=== PATIENT | female | born 1985 | race Caucasian/White ===

== ENCOUNTER → 2018-02-06 11:46 | Outpatient (CLI) | payer OTHER, SELFPAY ==
[2018-02-06 12:30] LABS: Hematocrit 34.7 % (37-47); Hemoglobin 12.3 g/dl (12.0-15.0); Mean Corp Hgb Conc 35.4 g/gl (32-36); Mean Corpuscular Hgb 32.4 pg (27.0-32.0); Mean Corpuscular Volume 91.3 fL (81-99); Mean Platelet Vol. 10.6 fl (6.2-12.0); Platelet Count 202 K/mm3 (150-450); RBC Distribution Width CV 12.5 % (11.6-14.6); RBC Distribution Width SD 40.4 fl (35.1-43.9); White Blood Count 7.2 K/mm3 (4.4-11.0)
[2018-02-06 12:33] LABS: Glucose Challenge Gest 1H 50g 83 mg/dL (70-140)
[2018-02-06 12:37] LABS: Scan Indicated on CBC? Y/N NO
== END ==
PROVIDERS: Visit Provider Obstetrics & Gynecology
DX: Z34.83 Encounter for supervision of other normal pregnancy, third trimester (principal)
CPT/HCPCS: 36415; 82950; 85027

== ENCOUNTER → 2018-04-04 16:41 | Outpatient (CLI) | payer OTHER, SELFPAY ==
[2018-04-04 18:36] LABS: Group B Strep DNA By PCR Negative (Negative); Internal Control PASS; Probe Check PASS; Specimen Processing Control PASS
== END ==
PROVIDERS: Visit Provider Obstetrics & Gynecology
DX: Z36.85 Encounter for antenatal screening for Streptococcus B (principal)
CPT/HCPCS: 87081; 87653

== ENCOUNTER 2018-05-03 16:15 | Inpatient (IN) | payer OTHER, SELFPAY ==
[2018-05-03 17:01] VITALS: BMI 21.3
[2018-05-03 17:19] LABS: Hematocrit 34.4 % (37-47); Mean Corp Hgb Conc 34.9 g/gl (32-36); Mean Corpuscular Hgb 30.2 pg (27.0-32.0); Mean Corpuscular Volume 86.6 fL (81-99); Mean Platelet Vol. 11.1 fl (6.2-12.0); Platelet Count 195 K/mm3 (150-450); RBC Distribution Width CV 12.1 % (11.6-14.6); RBC Distribution Width SD 37.7 fl (35.1-43.9); Red Blood Count 3.97 M/mm3 (4.2-5.4); Scan Indicated on CBC? Y/N NO; White Blood Count 9.5 K/mm3 (4.4-11.0)
[2018-05-03] MEDS: Oxytocin 30 units/NS 500 ml 30 UNITS/500 ML IV.SOLN 334 UNITS IV (17:55)
--- NOTE | 2018-05-03 18:01 | PCM.OB.VAG ---
Vaginal Delivery Maternal Presentation: Active Labor 40 2/7 wk active labor. Amniotic Membrane Rupture Type: Spontaneous Amniotic Fluid Description: Clear Final DK: 05/01/18 Gestational age: 40 Weeks and 2 Days Date of Procedure: 05/03/18 Pre-Operative Diagnosis: 40 2/7 wk labor. Post-Operative Diagnosis: Precipitous labor Surgery/ Procedure Performed: Spontaneous Vaginal Delivery Type of Anesthesia: None Description of Procedure: Rapid progress from 5 cm to complete and SROM. End stage FHR deceleration x 5-6 min 60-90s due to rapid descent of alfaro male over intact perineum. Shoulders delivered easily. Infant to maternal abdomen and cord clamped x two and cut. Routine cord gas and cord blood for typing sent. Placenta delivered by spont expuslion, expression 3V cord normal appearing and intact with trailing membranes. PP exam: 1st deg vulvar avulsion laceration noted. No other lacerations. Repaired under 1% local lidocaine. with 3-0 Vicryl EBL 200 cc pt and tolerated well. to recovery stable condition RayTec counts correct x two. Presentation: Vertex Placental Delivery Description: Spontaneous, Expressed Placenta Disposition: [facility] Cord Vessel Description: 3 Vessels Cord Entanglement: None Estimated Blood Loss: 200 Infant A gender: Male (1 minute): 8 (5 minute): 9 Episiotomy Description: None Laceration: 1st degree - avulsion laceration at R mid labia majora. repaired, reapproximated. Medications given after delivery: IV Pitocin Complications: None
--- NOTE | 2018-05-03 18:07 | OP.PCM_ITS ---
Vaginal Delivery Maternal Presentation: Active Labor 40 2/7 wk active labor. Amniotic Membrane Rupture Type: Spontaneous Amniotic Fluid Description: Clear Final DK: 05/01/18 Gestational age: 40 Weeks and 2 Days Date of Procedure: 05/03/18 Pre-Operative Diagnosis: 40 2/7 wk labor. Post-Operative Diagnosis: Precipitous labor Surgery/ Procedure Performed: Spontaneous Vaginal Delivery Type of Anesthesia: None Description of Procedure: Rapid progress from 5 cm to complete and SROM. End stage FHR deceleration x 5- 6 min 60-90s due to rapid descent of alfaro male over intact perineum. Shoulders delivered easily. to maternal abdomen and cord clamped x two and cut. Routine cord gas and cord blood for typing sent. Placenta delivered by spont expuslion, expression 3V cord normal appearing and intact with trailing membranes. PP exam: 1st deg vulvar avulsion laceration noted. No other lacerations. Repaired under 1% local lidocaine. with 3-0 Vicryl EBL 200 cc pt and tolerated well. to recovery stable condition RayTec counts correct x two. Presentation: Vertex Placental Delivery Description: Spontaneous, Expressed Placenta Disposition: [facility] Cord Vessel Description: 3 Vessels Cord Entanglement: None Estimated Blood Loss: 200 A gender: Male (1 minute): 8 (5 minute): 9 Episiotomy Description: None Laceration: 1st degree - avulsion laceration at R mid labia majora. repaired, reapproximated. Medications given after delivery: IV Pitocin Complications: None
--- NOTE | 2018-05-03 18:09 | PCM.DCVAG ---
Discharge Diet: No Restrictions Discharge Activity: May Shower, May Take a Tub Bath May resume sexual activity in: 4-6 weeks Additional Activity Instructions:: Nothing in the vagina for 4-6 weeks. You may return to work/school in 6 weeks. Additional Instructions: If you experience any of the following, contact your healthcare provider. Bleeding that soaks a pad every hour for 2 hours Fever 100.4 or higher Unrelieved abdominal pain Problems urinating (including inability to urinate or burning while urinating). Visual changes Severe headache Flu-like symptoms Pain or redness in one of both of your breasts Pain, warmth, tenderness or swelling in your legs, especially the calf area Frequent nausea and vomiting Symptoms of depression or anxiety If you experience any of the following, call 911 or go to the nearest Emergency Room. Chest pain Problems breathing Seizure activity Partial or complete paralysis of a body part, slurred speech, weakness or drooping of the face, or a sudden inability to walk or hold your balance Allergies/Adverse Reactions: Allergies amoxicillin [Amoxicillin] Allergy (Intermediate, Verified 05/03/18 17:17) Rash Medications to take at Discharge Vits [Prenatabs FA ] 1 tab PO DAILY 12/02/15 Please Follow Up With: Chase López MD - [phone] When: Call to make an appointment with your doctor in 6 weeks. Primary Care Physician: Care Physician,No Primary [Primary Care Provider] - Proposed Discharge Date: 05/05/18
--- NOTE | 2018-05-03 18:10 | DCINST_ITS ---
Discharge Diet: No Restrictions Discharge Activity: May Shower, May Take a Tub Bath May resume sexual activity in: 4-6 weeks Additional Activity Instructions:: Nothing in the vagina for 4-6 weeks. You may return to work/school in 6 weeks. Additional Instructions: If you experience any of the following, contact your healthcare provider. * Bleeding that soaks a pad every hour for 2 hours * Fever 100.4 or higher * Unrelieved abdominal pain * Problems urinating (including inability to urinate or burning while urinating) . * Visual changes * Severe headache * Flu-like symptoms * Pain or redness in one of both of your breasts * Pain, warmth, tenderness or swelling in your legs, especially the calf area * Frequent nausea and vomiting * Symptoms of depression or anxiety If you experience any of the following, call 911 or go to the nearest Emergency Room. * Chest pain * Problems breathing * Seizure activity * Partial or complete paralysis of a body part, slurred speech, weakness or drooping of the face, or a sudden inability to walk or hold your balance Allergies/Adverse Reactions: Allergies amoxicillin [Amoxicillin] Allergy (Intermediate, Verified 05/03/18 17:17) Rash Medications to take at Discharge Vits [Prenatabs FA ] 1 tab PO DAILY 12/02/15 Please Follow Up With: Chase López MD - [phone] When: Call to make an appointment with your doctor in 6 weeks. Primary Care Physician: Care Physician,No Primary [Primary Care Provider] - Proposed Discharge Date: 05/05/18
[2018-05-03] MEDS: Oxytocin 30 units/NS 500 ml 30 UNITS/500 ML IV.SOLN 167 UNITS IV (18:25)
[2018-05-03] MEDS: 0.9% Saline Lock 10 ML Syringe IV (19:35)
[2018-05-03] MEDS: Methylergonovine 0.2 MG/ML Ampul IM (19:39)
[2018-05-03 20:01] VITALS: BP 115/69; PULSE 62; RESP 18; TEMP 37.3
[2018-05-03] MEDS: Naproxen 250 MG Tablet PO (21:34)
--- NOTE | 2018-05-03 22:30 | NURSING ---
completed per phone conversation with Jimmy @ 2226 05/03/18.
[2018-05-03 23:30] VITALS: BP 126/65; PULSE 64; RESP 17; TEMP 36.8
[2018-05-04 03:45] VITALS: BP 113/60; PULSE 57; RESP 16; TEMP 36.8
--- NOTE | 2018-05-04 07:52 | PCM.PN.OB ---
Subjective: PPD#1 , precipitous labor/delivery Doing well. Nursing. States no pain and feeling very well. No concerns voiced. Plans circumcision today and asking questions re this. Nursing in room and assisting with latching of baby , nursing. - Physical Exam General: Alert, Oriented x3, Cooperative, No apparent distress HEENT: Atraumatic Neck: Supple Neurological: Cranial nerves II-XII grossly intact Psych/Mental Status: Normal Affect Vital Signs Temp Pulse Resp BP 98.3 F 57 L 16 113/60 05/04/18 03:45 05/04/18 03:45 05/04/18 03:45 05/04/18 03:45 Oxygen Delivery Method Room Air Weight: 63.56 kg Body Mass Index (BMI) 21.3 Intake and Output for Last 24 Hours 05/02/18 05/03/18 05/04/18 23:59 23:59 23:59 Output Total 800 / 800 Balance -800 / -800 Laboratory Tests Past 24 Hrs 05/03/18 05/03/18 17:00 17:00 WBC 9.5 RBC 3.97 L Hgb 12.0 Hct 34.4 L MCV 86.6 MCH 30.2 MCHC 34.9 RDW 12.1 RDW Differential 37.7 Plt Count 195 MPV 11.1 Blood Type O POSITIVE Antibody Screen NEGATIVE Medical Necessity - Tobacco Use Smoking Status: Never smoker Assessment/Plan All Active Problems (Last Updated 12/14/17 @ 09:56 by Yamilex Lechuga) Cyclic neutropenia (Resolved) PPD#1 , precipitous labor/ delivery stable pp. Offered dischg home today or tomorrow. Will consider and inform nursing staff
[2018-05-04 09:30] VITALS: BP 117/69; PULSE 71; RESP 16; TEMP 36.9
[2018-05-04] MEDS: Naproxen 250 MG Tablet PO ×2 (09:45→18:13)
[2018-05-04] MEDS: Prenatal Vits Tablet 1 TABLET PO (09:46)
[2018-05-04 15:50] VITALS: BP 124/71; PULSE 61; RESP 16; TEMP 36.9
[2018-05-04] MEDS: Senna/Docusate Sodium 1 Tablet PO (18:13)
[2018-05-04 20:03] VITALS: BP 126/72; PULSE 62; RESP 16; TEMP 36.8
[2018-05-04 21:20] VITALS: BP 126/72; PULSE 88; RESP 16; TEMP 36.8
== END 2018-05-04 21:50 | disposition home or self-care (01) | DRG 775 ==
PROVIDERS: Admitting Provider Obstetrics & Gynecology; Visit Provider Obstetrics & Gynecology
DX: O76 Abnormality in fetal heart rate and rhythm complicating labor and delivery (principal); O42.02 Full-term premature rupture of membranes, onset of labor within 24 hours of rupture; O62.3 Precipitate labor; O99.89 Other specified diseases and conditions complicating pregnancy, childbirth and the puerperium; D70.4 Cyclic neutropenia; O70.0 First degree perineal laceration during delivery; Z3A.40 40 weeks gestation of pregnancy; Z37.0 Single live birth; Z87.59 Personal history of other complications of pregnancy, childbirth and the puerperium
CPT/HCPCS: 59025; 59050; 85027; 86850; 86900; 99218; A4216; G0378

== ENCOUNTER → 2019-07-16 | Outpatient (CLI) | payer OTHER, SELFPAY ==
[2019-07-22 15:08] LABS: HPV Reflexed? NOT INDICATED
== END | disposition home or self-care (01) ==
LOC: LABSPEC 15:42
PROVIDERS: Visit Provider Obstetrics & Gynecology
DX: Z12.4 Encounter for screening for malignant neoplasm of cervix (principal)
CPT/HCPCS: 87624; 88175; G0145

== ENCOUNTER → 2019-10-07 14:21 | Outpatient (CLI) | payer OTHER, SELFPAY ==
[2019-10-07 13:29] VITALS: BMI 21.3
[2019-10-07 17:37] LABS: Absolute Lymphocyte Count 1.48 X10^3/uL (0.83-4.51); Absolute Neutrophil Count 3.6 X10^3/uL (2.0-7.7); Basophil# 0.02 X10^3/uL; Basophil% 0.4 % (0-1); Eosinophil# 0.11 X10^3/uL; Hematocrit 42.3 % (37-47); Hemoglobin 13.7 g/dL (12.0-15.0); Lymphocyte # 1.48 X10^3/ul (4.0); Lymphocyte % 26.3 % (19-41); Mean Corp Hgb Conc 32.4 g/dL (32-36); Mean Corpuscular Hgb 28.6 pg (27.0-32.0); Mean Corpuscular Volume 88.3 fL (81-99); Mean Platelet Vol. 10.6 fl (6.2-12.0); Monocyte# 0.37 X10^3/uL; Monocyte% 6.6 % (0-10); NRBC Flagged by Analyzer 0 % (0-5); Neutrophil # 3.63 X10^3/uL (2.7-7.7); Neutrophil % 64.5 % (47-70); Platelet Count 219 K/mm3 (150-450); RBC Distribution Width CV 12.1 % (11.6-14.6); RBC Distribution Width SD 39.1 fl (35.1-43.9); Red Blood Count 4.79 M/mm3 (4.2-5.4); White Blood Count 5.6 K/mm3 (4.4-11.0)
[2019-10-07 18:07] LABS: ALB/GLOB Ratio 1.1 RATIO (0.9-2.4); AST(SGOT) 22 U/L (15-37); Alanine Aminotransfer ALT/SGPT 23 U/L (13-56); Alkaline Phosphatase 62 U/L (45-117); Anion Gap 6 (5-15); BUN 11 mg/dL (7-18); BUN/Creat Ratio 12.2 RATIO (10-20); Calcium,Total 8.3 mg/dL (8.5-10.1); Chloride 104 mmol/L (98-107); EST Glomerular Filtration Rate 76 mL/min (>60); Est Glom Filt Rate - Afr Amer 92 mL/min (>60); Globulin 3.8 g/dL (2.2-4.2); Glucose 82 mg/dL (74-106); Potassium 3.7 mmol/L (3.5-5.1); Protein, Total 7.8 g/dL (6.4-8.2); Sodium Level 139 mmol/L (136-145); T4 Free Direct 1.11 ng/dL (0.76-1.46); Thyroid Stim Hormone (TSH) 1.76 uIU/mL (0.358-3.74)
== END ==
PROVIDERS: Family Provider Internal Medicine; PCP Internal Medicine; Referring Provider Internal Medicine; Visit Provider Internal Medicine
DX: D70.9 Neutropenia, unspecified (principal); Z13.29 Encounter for screening for other suspected endocrine disorder
CPT/HCPCS: 36415; 80053; 84439; 84443; 85025

== ENCOUNTER → 2020-08-25 10:16 | Outpatient (CLI) | payer OTHER, SELFPAY ==
[2020-08-25 09:51] VITALS: BMI 21.3
[2020-08-25 10:18] LABS: Mucous, Urine 0 SEEN /hpf (<or=2+); Red Blood Cells-Urine 0 SEEN /hpf (0-5)
--- NOTE | 2020-08-25 10:38 | EKG12_ITS ---
Test Reason : PREOP Blood Pressure : / mmHG Vent. Rate : 065 BPM Atrial Rate : 065 BPM P-R Int : 126 ms QRS Dur : 084 ms QT Int : 390 ms P-R-T Axes : 079 079 046 degrees QTc Int : 405 ms Normal sinus rhythm Normal ECG Confirmed by KESHAV DELGADO, ARNOL ([id number]), multimedia editor BETTINA SHARIF ([id number]) on 08/26/2020 10:07:43 AM Referred By: Av Kim Confirmed By:ARNOL PARR MD
[2020-08-25 12:11] LABS: Color, Urine Yellow (Yellow); Glucose, Dipstick Normal (Normal); Ketone-Dipstick Negative (Negative); Leukocyte Esterase-Dipstick 100 /ul (Negative); Nitrite-Dipstick Negative (Negative); Occult Blood-Urine 10 /ul (Negative); Protein-Dipstick Negative (Negative); Urine Bilirubin Dipstick Negative (Negative); Urine Clarity Clear (Clear); Urine Urobilinogen Normal (Normal)
[2020-08-25 12:12] LABS: Internal QC Validated? YES +Cl - CLEAR BKGD; Pregnancy, Urine Negative Negative
[2020-08-25 12:13] LABS: Absolute Lymphocyte Count 1.18 X10^3/uL (0.83-4.51); Absolute Neutrophil Count 3.5 X10^3/uL (2.0-7.7); Basophil# 0.01 X10^3/uL; Basophil% 0.2 % (0-1); Eosinophil# 0.05 X10^3/uL; Hematocrit 42.9 % (37-47); Hemoglobin 14.4 g/dL (12.0-15.0); Lymphocyte # 1.18 X10^3/ul (4.0); Lymphocyte % 23.3 % (19-41); Mean Corp Hgb Conc 33.6 g/dL (32-36); Mean Corpuscular Hgb 29.9 pg (27.0-32.0); Mean Platelet Vol. 10.7 fl (6.2-12.0); Monocyte# 0.37 X10^3/uL; Monocyte% 7.3 % (0-10); NRBC Flagged by Analyzer 0 % (0-5); Neutrophil # 3.45 X10^3/uL (2.7-7.7); Platelet Count 252 K/mm3 (150-450); RBC Distribution Width CV 11.8 % (11.6-14.6); RBC Distribution Width SD 38.5 fl (35.1-43.9); Red Blood Count 4.82 M/mm3 (4.2-5.4); White Blood Count 5.1 K/mm3 (4.4-11.0)
[2020-08-25 12:15] LABS: Bacteria RARE /hpf (None Seen); Squamous Epithelial Cells - UA 5-10 SEEN /hpf (5-10); White Blood Cells 0-5 SEEN /hpf (0-5)
[2020-08-25 12:33] LABS: ALB/GLOB Ratio 0.9 RATIO (0.9-2.4); AST(SGOT) 23 U/L (15-37); Alanine Aminotransfer ALT/SGPT 23 U/L (13-56); Albumin, Serum 3.8 g/dL (3.2-5.0); Alkaline Phosphatase 64 U/L (45-117); Anion Gap 4 (5-15); BUN 10 mg/dL (7-18); BUN/Creat Ratio 12.8 RATIO (10-20); Calcium,Total 8.8 mg/dL (8.5-10.1); Chloride 106 mmol/L (98-107); Creatinine, Serum 0.78 mg/dL (0.55-1.02); EST Glomerular Filtration Rate 89 mL/min (>60); Est Glom Filt Rate - Afr Amer 108 mL/min (>60); Globulin 4.2 g/dL (2.2-4.2); Glucose 73 mg/dL (74-106); Potassium 3.9 mmol/L (3.5-5.1); Sodium Level 138 mmol/L (136-145); Thyroid Stim Hormone (TSH) 1.67 uIU/mL (0.358-3.74)
== END ==
PROVIDERS: PCP Internal Medicine; Referring Provider Nurse Practitioner Family; Visit Provider Nurse Practitioner Family
DX: Z01.818 Encounter for other preprocedural examination (principal)
CPT/HCPCS: 36415; 80053; 81001; 81025; 84443; 85025; 93005

== ENCOUNTER 2020-09-16 13:35 | Emergency (ER) | payer OTHER, SELFPAY ==
[2020-08-25 09:51] VITALS: BMI 21.3
[2020-09-16 13:36] VITALS: BP 130/75; PULSE 107; RESP 16; TEMP 36.6; O2SAT 100; BMI 18.1
--- NOTE | 2020-09-16 13:43 | EKG12_ITS ---
Test Reason : SOB/CHEST TIGHTNESS Blood Pressure : / mmHG Vent. Rate : 081 BPM Atrial Rate : 081 BPM P-R Int : 120 ms QRS Dur : 084 ms QT Int : 368 ms P-R-T Axes : 072 013 059 degrees QTc Int : 427 ms Normal sinus rhythm Low voltage QRS Borderline ECG Confirmed by CLINT DELGADO, CHASITY ([id number]), slab off mill tender SHASHI SANTAMARIA ([id number]) on 09/23/2020 12:50:41 PM Referred By: ALMA Confirmed By:YENNY JARAMILLO MD
--- NOTE | 2020-09-16 13:53 | CT_ITS ---
STUDY: CTA CHEST REASON FOR EXAM: Female, 35 years old. SOB/BREAST AUGMENTATION WITH FAT TRANSFER 08/28/20. SOB RADIATION DOSAGE (If Supplied By Facility): CTDIvol = ( 4.20 ) mGy, DLP = ( 138.70 ) mGycm TECHNIQUE: The examination was performed with the intravenous administration of IV 75mL Isovue-370. Post-processing of the angiographic images was performed, with multiplanar reformation and 3D reconstruction. Individualized dose optimization techniques were used for this CT. COMPARISON: Comparison is made with prior examination dated 11/06/2011. FINDINGS: There is evidence of bilateral breast prostheses. Normal enhancement of the main pulmonary artery and right and left pulmonary arteries. Normal enhancement of the bilateral peripheral pulmonary arteries. There is no demonstrated pulmonary embolism. Normal thoracic aorta and visualized great vessels. There is no demonstrated aortic dissection. Normal heart and pericardium. Normal mediastinum. Normal hilar regions. Normal visualized trachea and bronchi. The lungs are well expanded. Minimal linear atelectasis at the lung bases. Normal pleura. Normal chest wall structures. Normal osseous structures. Normal visualized upper abdomen. CT/CTA Chest W/WO Contrast IMPRESSION: Status post bilateral breast prostheses. Minimal linear atelectasis at the lung bases Electronically Signed: Papito Tesfaye, at 15:07 EDT , Service support ,
--- NOTE | 2020-09-16 13:54 | ED.VIS.GEN ---
History of Present Illness Chief Complaint: Shortness of Breath Informant: Patient Onset: Days - 9 Narrative: Patient sent in here for PE rule out. Status post breast augmentation with fat transfer 9 days ago in [place] by Dr. William. 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 Noted increasing dyspnea with exertion. She states initially post surgery she felt slight dyspnea with having the take more deep breaths. No chest pains. No lightheaded symptoms. No past medical history. For the office at work she is 99% room air slightly tachycardic heart rate right at 100. She had negative Covid testing prior to her surgery. No fevers. No cough. Prior similar symptoms: No Past Medical History - Allergies and Home Meds Allergies/Adverse Reactions: Allergies amoxicillin [Amoxicillin] Allergy (Intermediate, Verified 09/16/20 13:36) Rash Primary Care Physician: Mandi Snider MD [Primary Care Provider] - Past Medical History: None Smoking Status: Never smoker Review of Systems General: Denies: Chills, Fever, Sweats Eyes: Denies: Visual changes - bilaterally, Diplopia ENT: Denies: Rhinorrhea, Sore throat Cardiovascular: Denies: Chest pain, Palpitations Respiratory: Reports: Dyspnea, Dyspnea on exertion. Denies: Cough Gastrointestinal: Denies: Abdominal pain, Nausea, Vomiting, Diarrhea, Melena, Hematochezia Genitourinary: Denies: Dysuria, Hematuria, Frequency Musculoskeletal: Denies: Back pain, Extremity Pain Skin: Denies: Rash, Wounds Neurological: Denies: Headache, Weakness, Numbness Physical Exam Vital Signs/Narrative: Vital Signs Temp Pulse Resp BP Pulse Ox 09/16/20 13:36 97.8 F 107 H 16 130/75 H 100 Inital Vital Signs reviewed: Yes General: Well nourished, Well developed, No Acute Distress Head: Normocephalic, Atraumatic Eyes: Perrl, EOMI ENT: Moist mucous membranes, No rhinorrhea Neck: Supple, Nontender Cardiovascular: Regular rate, Regular rhythm, No murmurs, Tachycardia Respiratory: No distress, CTA bilaterally, Chest nontender Abdomen: Soft, Nontender, Nondistended, Normal bowel sounds Back: Nontender, Normal Inspection Extremities: Nontender, No edema Skin: Normal color, No rash Neurological: Alert, Oriented x3, Cranial nerves II-XII grossly intact, Normal Strength, Normal Sensation Psychological: Normal affect, Normal Mood Diagnostic/Tx/Re-eval Clinical Impression(s) from Imaging Studies Chest CTA 09/16/20 13:53 IMPRESSION: Status post bilateral breast prostheses. Minimal linear atelectasis at the lung bases Electronically Signed: Papito Tesfaye, at 15:07 EDT , Service support , Abnormal Lab Results 09/16/20 09/16/20 09/16/20 14:00 14:00 14:00 WBC RBC Hgb Hct MCV MCH MCHC RDW Std Deviation RDW Coeff of Robert Plt Count MPV Immature Gran % (Auto) Neut % (Auto) Lymph % (Auto) Rolette % (Auto) Eos % (Auto) Baso % (Auto) Absolute Neuts (auto) Absolute Lymphs (auto) Nucleated RBC % PT 12.5 INR 1.0 APTT 30.0 Sodium 139 Potassium 3.3 L Chloride 108 H Carbon Dioxide 27.0 Anion Gap 4 L BUN 12 Creatinine 0.74 Estim Creat Clear Calc 90.79 Est GFR (MDRD) Af Amer 115 Est GFR (MDRD) Non-Af 95 BUN/Creatinine Ratio 16.3 Glucose 103 Calcium 8.8 Total Bilirubin 0.40 AST 25 ALT 23 Alkaline Phosphatase 60 Total Protein 7.7 Albumin 3.8 Globulin 3.9 Albumin/Globulin Ratio 1.0 Serum , Qual NEGATIVE 09/16/20 14:00 WBC 5.7 RBC 4.52 Hgb 13.8 Hct 40.4 MCV 89.4 MCH 30.5 MCHC 34.2 RDW Std Deviation 37.6 RDW Coeff of Robert 11.7 Plt Count 253 MPV 10.4 Immature Gran % (Auto) 0.200 Neut % (Auto) 65.7 Lymph % (Auto) 23.0 Rolette % (Auto) 10.2 H Eos % (Auto) 0.5 Baso % (Auto) 0.4 Absolute Neuts (auto) 3.8 Absolute Lymphs (auto) 1.31 Nucleated RBC % 0 PT INR APTT Sodium Potassium Chloride Carbon Dioxide Anion Gap BUN Creatinine Estim Creat Clear Calc Est GFR (MDRD) Af Amer Est GFR (MDRD) Non-Af BUN/Creatinine Ratio Glucose Calcium Total Bilirubin AST ALT Alkaline Phosphatase Total Protein Albumin Globulin Albumin/Globulin Ratio Serum , Qual - EKG Initial EKG Interpretation: Sinus Rhythm - EKG sinus rate of 81, no ST or T wave changes. - Medical Decision Making Patient nontoxic, no respiratory distress. Moderate risk Wells criteria for PE with her recent surgery and symptoms. Labs stable EKG normal. CTA of the chest results returned negative. Initial tachycardia in triage normalized. Pulse ox is stable. She will monitor her symptoms. She has a follow-up with her surgeon in a week. Signs and symptoms discussed to return. All questions were answered. ED Disposition - Plan for ED Patient: Disposition: Home or Assisted Living Diagnosis: Dyspnea, post op breast augmentaion Instructions: ED Dyspnea Referrals: Mandi Snider MD [Primary Care Provider] - 1 Week Additional Instructions: CTA chest negative.
[2020-09-16 14:06] VITALS: O2SAT 100
[2020-09-16 14:24] LABS: Internal QC Validated? YES +Cl - CLEAR BKGD; Pregnancy, Serum, hCG Quali. NEGATIVE Negative
[2020-09-16 14:27] LABS: Prothrombin Time (Protime)PT. 12.5 SECONDS (11.7-14.9)
[2020-09-16 14:28] LABS: AST(SGOT) 25 U/L (15-37); Alanine Aminotransfer ALT/SGPT 23 U/L (13-56); Albumin, Serum 3.8 g/dL (3.2-5.0); Alkaline Phosphatase 60 U/L (45-117); Anion Gap 4 (5-15); BUN 12 mg/dL (7-18); BUN/Creat Ratio 16.3 RATIO (10-20); Calcium,Total 8.8 mg/dL (8.5-10.1); Chloride 108 mmol/L (98-107); Creatinine, Serum 0.74 mg/dL (0.55-1.02); EST Glomerular Filtration Rate 95 mL/min (>60); Est Glom Filt Rate - Afr Amer 115 mL/min (>60); Estimated Creatinine Clearance 90.79 ml/min; Globulin 3.9 g/dL (2.2-4.2); Glucose 103 mg/dL (74-106); Potassium 3.3 mmol/L (3.5-5.1); Protein, Total 7.7 g/dL (6.4-8.2); Sodium Level 139 mmol/L (136-145)
[2020-09-16 14:46] LABS: Absolute Lymphocyte Count 1.31 X10^3/uL (0.83-4.51); Absolute Neutrophil Count 3.8 X10^3/uL (2.0-7.7); Basophil# 0.02 X10^3/uL; Basophil% 0.4 % (0-1); Eosinophil# 0.03 X10^3/uL; Eosinophils% 0.5 % (0-5); Hematocrit 40.4 % (37-47); Hemoglobin 13.8 g/dL (12.0-15.0); Lymphocyte # 1.31 X10^3/ul (4.0); Mean Corp Hgb Conc 34.2 g/dL (32-36); Mean Corpuscular Hgb 30.5 pg (27.0-32.0); Mean Corpuscular Volume 89.4 fL (81-99); Mean Platelet Vol. 10.4 fl (6.2-12.0); Monocyte# 0.58 X10^3/uL; Monocyte% 10.2 % (0-10); NRBC Flagged by Analyzer 0 % (0-5); Neutrophil # 3.75 X10^3/uL (2.7-7.7); Neutrophil % 65.7 % (47-70); Platelet Count 253 K/mm3 (150-450); RBC Distribution Width CV 11.7 % (11.6-14.6); RBC Distribution Width SD 37.6 fl (35.1-43.9); Red Blood Count 4.52 M/mm3 (4.2-5.4); White Blood Count 5.7 K/mm3 (4.4-11.0)
[2020-09-16 16:09] VITALS: BP 117/70; PULSE 84; RESP 18; O2SAT 99
== END 2020-09-16 16:16 | disposition home or self-care (01) ==
PROVIDERS: Emergency Provider Emergency Medicine; PCP Internal Medicine
DX: R06.00 Dyspnea, unspecified (principal); Z98.82 Breast implant status
CPT/HCPCS: 71275; 80048; 80053; 84703; 85025; 85610; 85730; 93005; 99283; Q9967; A4216

== ENCOUNTER 2022-02-09 13:35 | Outpatient (CLI) | payer OTHER, SELFPAY ==
[2022-02-15 21:22] LABS: HPV Reflexed? NOT INDICATED
== END 2022-02-09 23:59 | disposition home or self-care (01) ==
LOC: WOBLAB 13:36
PROVIDERS: PCP Internal Medicine; Referring Provider Obstetrics & Gynecology; Visit Provider Obstetrics & Gynecology
DX: Z12.4 Encounter for screening for malignant neoplasm of cervix (principal)
CPT/HCPCS: 88175; G0145

== ENCOUNTER 2022-06-14 12:12 | Outpatient (CLI) | payer OTHER, SELFPAY ==
--- NOTE | 2022-06-14 12:15 | BI_ITS ---
MAMMOGRAPHY - BILATERAL DIAGNOSTIC REASON FOR EXAM: Female, 37 years old. Right pea-sized lump just deep to the skin surface. PERTINENT HISTORY: Non-contributory. TECHNIQUE: Digital bilateral breast aarti (3D mammographic acquisition) in the CC and MLO projections. 2-D mediolateral oblique (MLO) and craniocaudad (CC) views of both breasts were obtained. CAD: Full Field Digital Mammography with Computer Added Detection was performed. COMPARISON: None. Baseline examination. FINDINGS: Breast Composition: The breasts are extremely dense, which lowers the sensitivity of mammography. There are no dominant masses or suspicious calcifications. Bilateral breast implants. No other significant abnormalities are identified. BI/DIAG MAMM W/CAD, BILAT IMPRESSION: Negative diagnostic mammogram. With the patient''s history of a palpable lump in the right breast, correlation with ultrasound is recommended. ASSESSMENT CATEGORY: BIRADS Category 0: Incomplete. Need additional imaging evaluation. A letter regarding these results will be sent to the patient by the facility within 30 days. Approximately 10% of breast cancers are not detected by mammography. A normal mammogram should not delay biopsy of a clinically suspicious abnormality. Electronically Signed: Papito Tesfaye MD at 13:54 EDT ,
--- NOTE | 2022-06-14 12:15 | US_ITS ---
STUDY: ULTRASOUND BREAST - RIGHT REASON FOR EXAM: Female, 37 years old. Palpable lump in the right breast. TECHNIQUE: Axial and longitudinal images of the RIGHT breast were performed with a high resolution ultrasound transducer. # OF IMAGES: 11 COMPARISON: Comparison is made with prior mammogram done earlier in the day. FINDINGS: RIGHT Breast: The palpable abnormality corresponds to a 7 mm x 8 mm x 5 mm cyst at the 1 o''clock position of the breast 8 cm US/Breast Limited Unilateral IMPRESSION: The palpable and mouth view) 7 mm x 8 mm x 5 mm cyst in the superficial aspect of the upper inner quadrant of the right breast. ASSESSMENT CATEGORY: BIRADS Category 2: Benign. A letter regarding these results will be sent to the patient by the facility within 30 days. Electronically Signed: Papito Tesfaye MD at 14:35 EDT ,
== END 2022-06-14 23:59 | disposition home or self-care (01) ==
PROVIDERS: PCP Internal Medicine; Visit Provider Nurse Practitioner Women's Health
DX: N63.10 Unspecified lump in the right breast, unspecified quadrant (principal)
CPT/HCPCS: 76642; 77062; 77066; G0279

== ENCOUNTER → 2024-01-01 | Outpatient (CLI) | payer OTHER, SELFPAY ==
[2024-01-01 16:27] LABS: Thyroid Stim Hormone (TSH) 1.97 uIU/mL (0.358-3.74)
[2024-01-03 11:09] LABS: Thyroid Peroxidase AB 12 IU/mL (0-34)
[2024-01-05 09:08] LABS: HPV APTIMA, High Risk Negative (Negative)
== END | disposition home or self-care (01) ==
PROVIDERS: PCP Nurse Practitioner Family; Referring Provider Nurse Practitioner Women's Health; Visit Provider Nurse Practitioner Women's Health
DX: Z12.4 Encounter for screening for malignant neoplasm of cervix (principal); D70.9 Neutropenia, unspecified; Z13.29 Encounter for screening for other suspected endocrine disorder
CPT/HCPCS: 36415; 84439; 84443; 86376; 87624; 88175; G0145

== ENCOUNTER 2024-01-24 07:24 | Outpatient (CLI) | payer OTHER, SELFPAY ==
[2024-01-24 10:06] LABS: Absolute Lymphocyte Count 0.97 X10^3/uL (0.83-4.51); Absolute Neutrophil Count 3.2 X10^3/uL (2.0-7.7); Basophil# 0.01 X10^3/uL; Basophil% 0.2 % (0-1); Eosinophil# 0.08 X10^3/uL; Eosinophils% 1.7 % (0-5); Hematocrit 39.8 % (37-47); Hemoglobin 13.5 g/dL (12.0-15.0); Lymphocyte # 0.97 X10^3/ul (0.83-4.51); Mean Corp Hgb Conc 33.9 g/dL (32-36); Mean Corpuscular Hgb 30.8 pg (27.0-32.0); Mean Corpuscular Volume 90.7 fL (81-99); Mean Platelet Vol. 10.2 fl (6.2-12.0); Monocyte# 0.36 X10^3/uL; Monocyte% 7.8 % (0-10); NRBC Flagged by Analyzer 0 % (0-5); Neutrophil # 3.19 X10^3/uL (2.7-7.7); Neutrophil % 69.1 % (47-70); Platelet Count 227 K/mm3 (150-450); RBC Distribution Width SD 39.6 fl (35.1-43.9); Red Blood Count 4.39 M/mm3 (4.2-5.4); White Blood Count 4.6 K/mm3 (4.4-11.0)
[2024-01-24 11:06] LABS: ALB/GLOB Ratio 0.9 RATIO (0.9-2.4); AST(SGOT) 23 U/L (15-37); Alanine Aminotransfer ALT/SGPT 20 U/L (13-56); Albumin, Serum 3.5 g/dL (3.2-5.0); Alkaline Phosphatase 53 U/L (45-117); Anion Gap 7 (5-15); BUN 15 mg/dL (7-18); BUN/Creat Ratio 18.2 RATIO (10-20); Calcium,Total 8.6 mg/dL (8.5-10.1); Chloride 106 mmol/L (98-107); Cholesterol 172 mg/dL (200); Creatinine, Serum 0.82 mg/dL (0.55-1.02); EST Glomerular Filtration Rate 82 mL/min (>60); Est Glom Filt Rate - Afr Amer 99 mL/min (>60); Globulin 3.8 g/dL (2.2-4.2); Glucose 79 mg/dL (74-106); High Density Lipoprotein 92 mg/dL; Potassium 3.6 mmol/L (3.5-5.1); Protein, Total 7.3 g/dL (6.4-8.2); Sodium Level 139 mmol/L (136-145); Triglycerides 44 mg/dL; Very Low Density Lipoprotein 9 mg/dL (5-40)
[2024-01-24 15:07] LABS: Vitamin B12 241 pg/mL (211-911); Vitamin D,25 Hydroxy 25.3 ng/mL
== END 2024-01-24 23:59 | disposition home or self-care (01) ==
PROVIDERS: PCP Nurse Practitioner Family; Referring Provider Nurse Practitioner Family; Visit Provider Nurse Practitioner Family
DX: Z00.00 Encounter for general adult medical examination without abnormal findings (principal); E56.9 Vitamin deficiency, unspecified
CPT/HCPCS: 36415; 80053; 80061; 82306; 82607; 85025

== ENCOUNTER → 2024-02-22 | Outpatient (CLI) | payer OTHER, SELFPAY ==
--- NOTE | 2024-02-22 11:52 | BI_ITS ---
MAMMOGRAPHY - BILATERAL SCREENING REASON FOR EXAM: Female, 38 years old. Routine annual screening examination. PERTINENT HISTORY: Non-contributory. Bilateral breast implants. TECHNIQUE: Digital bilateral breast siria (3D mammographic acquisition) in the CC and MLO projections. 2-D mediolateral oblique (MLO) and craniocaudad (CC) views of both breasts were obtained. CAD: Full Field Digital Mammography with Computer Added Detection was performed. COMPARISON: Comparison is made with prior study dated June 14, 2022. FINDINGS: Breast Composition: The breasts are extremely dense, which lowers the sensitivity of mammography. There are 2 adjacent well-defined nodules in the slightly upper deep central portion of the left breast. The larger nodule measures 9.5 mm. Correlation with ultrasound recommended. The implants are unchanged. No other significant abnormalities are identified. BI/SCRN MAMM (CAD)W/SIRIA BILAT IMPRESSION: There are 2 adjacent well-defined nodules in the slightly upper deep central portion of the left breast. Correlation with ultrasound recommended. ASSESSMENT CATEGORY: BIRADS Category 0: Incomplete. Need additional imaging evaluation. A letter regarding these results will be sent to the patient by the facility within 30 days. Approximately 10% of breast cancers are not detected by mammography. A normal mammogram should not delay biopsy of a clinically suspicious abnormality. [id number] Electronically Signed: Papito Tesfaye MD at 12:47 EDT ,
== END | disposition home or self-care (01) ==
LOC: OPBI 11:51
PROVIDERS: PCP Nurse Practitioner Family; Referring Provider Nurse Practitioner Women's Health; Visit Provider Nurse Practitioner Women's Health
DX: Z12.31 Encounter for screening mammogram for malignant neoplasm of breast (principal)
CPT/HCPCS: 77063; 77067

== ENCOUNTER → 2024-02-27 | Outpatient (CLI) | payer OTHER, SELFPAY ==
--- NOTE | 2024-02-27 10:51 | US_ITS ---
STUDY: ULTRASOUND BREAST - LEFT REASON FOR EXAM: Female, 38 years old. Abnormal screening mammogram. TECHNIQUE: Axial and longitudinal images of the LEFT breast were performed with a high resolution ultrasound transducer. # OF IMAGES: 17 COMPARISON: Comparison is made with prior mammogram dated February 22, 2024. FINDINGS: LEFT Breast: There are 2, adjacent cysts at the 11:00 position of the breast at 1 and 2 cm from the nipple. The larger cyst measures 6 mm x 8 mm x 4 mm. This corresponds to the mammographic findings. US/Breast Limited Unilateral IMPRESSION: 2 adjacent subcentimeter cysts at the 11:00 position of the breast. This corresponds to the mammographic findings. ASSESSMENT CATEGORY: BIRADS Category 2: Benign. A letter regarding these results will be sent to the patient by the facility within 30 days. Electronically Signed: Papito Tesfaye MD at 12:32 EDT ,
== END | disposition home or self-care (01) ==
PROVIDERS: PCP Nurse Practitioner Family; Referring Provider Nurse Practitioner Women's Health; Visit Provider Nurse Practitioner Women's Health
DX: N60.02 Solitary cyst of left breast (principal)
CPT/HCPCS: 76642

== ENCOUNTER → 2025-01-19 | Outpatient (CLI) | payer OTHER, SELFPAY ==
[2025-01-19 13:23] LABS: Hemoglobin A1c 5.2 % (<=5.6)
[2025-01-19 13:28] LABS: Absolute Lymphocyte Count 1.23 X10^3/uL (0.83-4.51); Absolute Neutrophil Count 2.8 X10^3/uL (2.0-7.7); Basophil# 0.02 X10^3/uL; Basophil% 0.4 % (0-1); Eosinophil# 0.06 X10^3/uL; Eosinophils% 1.3 % (0-5); Hemoglobin 14.4 g/dL (12.0-15.0); Lymphocyte # 1.23 X10^3/ul (0.83-4.51); Lymphocyte % 27.4 % (19-41); Mean Corp Hgb Conc 33.5 g/dL (32-36); Mean Corpuscular Hgb 30.1 pg (27.0-32.0); Mean Corpuscular Volume 89.8 fL (81-99); Mean Platelet Vol. 10.6 fl (6.2-12.0); Monocyte# 0.36 X10^3/uL; NRBC Flagged by Analyzer 0 % (0-5); Neutrophil # 2.81 X10^3/uL (2.7-7.7); Neutrophil % 62.7 % (47-70); Platelet Count 267 K/mm3 (150-450); RBC Distribution Width CV 12.1 % (11.6-14.6); RBC Distribution Width SD 39.4 fl (35.1-43.9); Red Blood Count 4.79 M/mm3 (4.2-5.4); White Blood Count 4.5 K/mm3 (4.4-11.0)
[2025-01-19 14:24] LABS: Cholesterol 192 mg/dL (<=200); High Density Lipoprotein 107 mg/dL; Low Density Lipoprotein Calc. 69 mg/dL; Magnesium 2.3 mg/dL (1.5-2.2); Triglycerides 80 mg/dL; Very Low Density Lipoprotein 16 mg/dL (5-40); cholesterol:hdl ratio screen 1.79
[2025-01-19 14:33] LABS: ALB/GLOB Ratio 1.4 RATIO (0.9-2.4); AST(SGOT) 30 U/L (<=31); Alanine Aminotransfer ALT/SGPT 16 U/L (<=34); Albumin, Serum 4.5 g/dL (3.5-5.0); Alkaline Phosphatase 58 U/L (35-104); Anion Gap 14 (5-15); BUN 11 mg/dL (4-19); Calcium 9.2 mg/dL (7.6-11.0); Carbon Dioxide 20.5 mmol/L (22.0-29.0); Chloride 104 mmol/L (96-108); Creatinine, Serum 0.81 mg/dL (0.70-1.20); EST Glomerular Filtration Rate 95 (>60); Globulin 3.2 g/dL (2.2-4.2); Glucose 82 mg/dL (70-99); Potassium 3.9 mmol/L (3.3-5.1); Protein, Total 7.7 g/dL (5.9-8.4); Sodium Level 139 mmol/L (133-145); Total Bilirubin 0.54 mg/dL (0.00-1.30)
== END | disposition home or self-care (01) ==
PROVIDERS: PCP Nurse Practitioner Family
DX: R00.2 Palpitations (principal); Z13.1 Encounter for screening for diabetes mellitus; Z13.220 Encounter for screening for lipoid disorders
CPT/HCPCS: 36415; 80053; 80061; 83036; 83735; 84443; 85025

== ENCOUNTER → 2025-03-26 | Outpatient (CLI) | payer OTHER, SELFPAY | END | disposition home or self-care (01) | LOC: LABSPEC 10:53 | PROVIDERS: PCP Nurse Practitioner Family; Referring Provider Advanced Practice Midwife; Visit Provider Advanced Practice Midwife | DX: N89.8 Other specified noninflammatory disorders of vagina (principal) | CPT/HCPCS: 87070; 87077; 87186; 87205 ==

== ENCOUNTER → 2025-04-08 | Outpatient (CLI) | payer OTHER, SELFPAY ==
--- NOTE | 2025-04-08 08:30 | BI_ITS ---
EXAM: SCRN MAMM (CAD)W/SIRIA BILAT 04/08/2025 CLINICAL HISTORY: F, Age 39 y/o , BREAST CANCER SCREENING TECHNIQUE: Bilateral screening digital breast tomosynthesis with 2D and 3D images. Computer aided detection. COMPARISON: Prior exam(s) dated 02/22/2024, 06/14/2022. FINDINGS: TISSUE DENSITY: The breast tissue is extremely dense which lowers the sensitivity of mammography. The mammogram demonstrates that the patient has dense breasts. Supplemental screening with whole breast ultrasound or MRI may be considered for further evaluation. Bilateral Breast Mammographic Findings: There are bilateral breast implants. No significant masses, calcifications or other abnormalities are identified. BI/SCRN MAMM (CAD)W/SIRIA BILAT IMPRESSION: Right Breast: BIRADS 1 NEGATIVE. Left Breast: BIRADS 1 NEGATIVE. OVERALL FINAL ASSESSMENT: BIRADS 1 NEGATIVE. RECOMMENDATION: Routine annual follow-up in 1 Year A letter with findings and recommendations will be mailed to the patient. Reading Location: [id number]
== END | disposition home or self-care (01) ==
LOC: OPBI 08:23
PROVIDERS: PCP Nurse Practitioner Family; Referring Provider Advanced Practice Midwife; Visit Provider Advanced Practice Midwife
DX: Z12.31 Encounter for screening mammogram for malignant neoplasm of breast (principal)
CPT/HCPCS: 77063; 77067

== ENCOUNTER → 2025-11-18 | Outpatient (CLI) | payer OTHER, SELFPAY ==
--- OUTSIDE RECORDS SUMMARY | 2025-11-18 10:41 | XMS RPT_ITS | CCD ---
Author Organization [facility] Care Team Providers Care Search Planner Name Role Phone ASHISH AGUIRRE Attending Unavailable ASHISH AGUIRRE Primary Care Unavailable ASHISH AGUIRRE Admitting Unavailable Dr. Mandi Snider Primary Care Provider [phone] Dr. Mandi Snider Referring Provider [phone] Judy BLISTER PACK OPERATOR, BLISTER PACK OPERATOR-C Av Attending Provider [phone] Dr. Mandi Snider Primary Care Provider [phone] Dr. Mandi Snider Referring Provider [phone] MARCELINO Juarez Attending Provider Unavailab melissa Sesay BLISTER PACK OPERATOR, BLISTER PACK OPERATOR-C Estefania Attending Provider [phone] Olena Clark Primary Care Provider Unavailabl e SHARI, OLENA JOHNSON Primary Care Unavailable [place] JUDSON, OLENA JOHNSON Primary Care Unavailable ARIANE ABARCA Referring Unavailable [place] JUDSON, OLENA JOHNSON Primary Care Unavailable [place], OLENA JOHNSON Primary Care Unavailable Dr. Mandi Snider Primary Care Provider [phone] Dr. Mandi Snider Referring Provider [phone] Shama BLISTER PACK OPERATOR, BLISTER PACK OPERATOR-C Estefania Attending Provider [phone] Dr. Mandi Snider Primary Care Provider [phone] Dr. Mandi Snider Referring Provider [phone] Shama BLISTER PACK OPERATOR, BLISTER PACK OPERATOR-C Estefania Attending Provider [phone] Olena Clark Primary Care Provider Unavailchirag Kim BLISTER PACK OPERATOR-CAv Primary Care Provider Beam BLISTER PACK OPERATOR-C, Zebulun Attending Provider Dr. Lashonda Jimenez MD Attending Provider Beam BLISTER PACK OPERATOR-C, Zebulun Referring Provider Kim BLISTER PACK OPERATOR-C, Av Referring Provider Lucille Li CNM Attending Provider Lucille Li CNM Referring Provider [phone] Kim VSC, Av Primary Care Unavailable Kim VSC, Av Referring Unavailable Lucille Li Attending Unavailable Lucille Li Referring Unavailable Kim VSC, Av Primary Care Unavailable Lucille Li Attending Unavailable Kim VSC, Av Primary Care Unavailable Lucille Li Attending Unavailable Lucille Li Referring Unavailable Beam VSC, Zebuluyannick Attending Unavailable Beam VSC, Zebulun Referring Unavailable Kim VSC, Av Primary Care Unavailable Beam VSC, Zebulun Attending Unavailable Kim VSC, Av Primary Care Unavailable Beam VSC, Zebulun Attending Unavailable Kim VSC, Av Primary Care Unavailable Beam, Donnie Referring Unavailable Kim VSC, Av Primary Care Unavailable Beam VSC, Zebulun Referring Unavailable Lashonda Jimenez Attending Unavailable Allergies Allergy Classification Reported Allergen(s) Allergy Type Date of Onset Reaction(s) Facility (11 sources) Amoxicillin; Translations: [AMOXICILLIN] Drug Allergy 2 Rash [facility] (7 sources) Shellfish; Translations: [shellfish derived] Allergy to substance 2 Swelling [facility] (4 sources) Sulfamethoxazol e; Translations: [SULFAMETHOXAZO LE] Drug Allergy 3 Other: See Comments [facility] Work Phone: (1 source) Amoxicillin Drug Allergy 5 [facility] Repository Medications Current Medications Medication Drug Class(es) Dates Sig (Normalized) Sig (Original) [id number] 200 actuat albuterol 0.09 mg/actuat metered dose inhaler (3 sources) beta2-Adrenergic Agonist Start: 11-21-2022 take 2 puff(s) by inhalation every four hours as needed albuterol HFA (PROAIR HFA) 90 mcg/actuation inhaler Indications: Viral bronchitis Inhale 2 Puffs as instructed every 4 hours as needed. 1 Each 11/21/2022 Active Comment on above: Inhale 2 Puffs as in structed every 4 hours as needed. Amitriptyline (3 sources) Tricyclic Antidepressant AMITRIPTYLINE HCL (ELAVIL ORAL) Take by mouth. Active AMITRIPTYLINE HC L (ELAVIL ORAL) Take by mouth. 0 Active Comment on above: Take by mouth. cholecalciferol 0.025 mg oral capsule (1 source) Vitamin D Start: 03-26-20 take 1 capsule by mouth once daily Cholecalciferol (Vitamin D3) 25 mcg (1,000 unit) capsule Active 25 ug PO daily March 26, 2025 12:00am doxycycline hyclate 100 mg oral capsule (8 sources) Tetracycline-cl ass Drug Start: 03-30-20 take 1 capsule by mouth twice daily Doxycycline Hyclate 100 mg capsule Active 100 mg PO TWICE A DAY March 30, 2025 12:00am Start: 11-04-2021 End: 05-04-2022 take 1 tablet by mouth twice daily Doxycycline Monohydrate 100 mg tablet Discontinued 100 mg PO TWICE A DAY November 04, 2021 1:00am May 04, 2022 11:01am Ethinyl Estradiol / norgestimate (3 sources) Progestin, Estrogen Norgestimate -Ethinyl Estradiol (TRI-SPRINTEC) 0.18/0.215/0.25 mg-35 mcg (28) Tab Take by mouth. Active Norgestimate-Eth inyl Estradiol (TRI-SPRINTEC) 0.18/0.215/0.25 mg-35 mcg (28) Tab Take by mouth. 0 Active Comment on above: Take by mouth. hyoscyamine sulfate 0.125 mg sublingual tablet (3 sources) take 0.125 mg under the tongue at bedtime hyoscyamine sublingual 0.125 mg Subl Dissolve 0.125 mg under the tongue before meals and at bedtime. Active Comment on above: Dissolve 0.125 mg un segudno the tongue before meals and at bedtime. metroNIDAZOLE 500 mg oral tablet (1 source) Nitroimidazole Antimicrobial Start: 03-26-20 take 1 tablet by mouth twice daily Metronidazole 500 mg tablet Active 500 mg PO TWICE A DAY March 26, 2025 12:00am predniSONE 20 mg oral tablet (1 source) Start: 11-21-19 End: 11-26-19 take 2 tablets by mouth once daily predniSONE (DELTASONE) 20 mg tablet Indications: Viral bronchitis Take 2 tablets by mouth once daily for 5 days. 10 tablet 0 11/21/2022 11/26/2022 Active Comment on above: Take 2 tablets by [facility] once daily for 5 days. Completed/Discontinued Medications Medication Drug Class(es) Dates Sig (Normalized) Sig (Original) azithromycin 250 mg oral tablet (12 sources) Macrolide Antimicrobial Start: 05-04-2022 End: 06-14-2022 take 2-5 tablets by mouth once daily Azithromycin (Zithromax Z-Genaro) 250 mg tablet Discontinued 0 PO .COMPLEX May 04, 2022 12:06pm June 14, 2022 10:07am take 500 mg today (day 1), then 250 mg for 4 days (days 2-5) PO benzonatate 200 mg oral capsule (5 sources) Non-narcotic Antitussive Start: 11-28-2022 End: 12-22-2022 Benzonatate 200 mg capsule Discontinued 200 mg PO 2 to 3 times per day as needed for cough November 28, 2022 1:00am December 22, 2022 4:58pm docusate sodium 100 mg oral capsule (7 sources) Start: 12-24-2015 End: 06-19-2017 take 1 capsule by mouth twice daily as needed for constipation Docusate Sodium (Colace) 100 MG capsule Discontinued 100 mg PO TWICE DAILY NEEDED as needed for Constipation December 24, 2015 1:00am June 19, 2017 1:38pm escitalopram 10 mg oral tablet (5 sources) Serotonin Reuptake Inhibitor Start: 12-22-2022 End: 03-26-2025 take 1 tablet by mouth once daily Escitalopram Oxalate (Lexapro) 10 mg tablet Discontinued 10 mg PO DAILY December 22, 2022 1:00am March 26, 2025 9:31am naproxen 250 mg oral tablet (7 sources) Nonsteroidal Anti-inflammatory Drug Start: 12-24-2015 End: 06-19-2017 Naproxen 250 MG tablet Discontinued 1 - 2 {tbl} PO TWICE DAILY NEEDED as needed for Pain December 24, 2015 3:52am June 19, 2017 1:38pm Vit,Fpiz28-Pfqk-Lcs ic (5 sources) Start: 12-02-2015 End: 10-07-2019 take 1 tablet by mouth once daily Vit,Qalv65-Cirs-Mj lic Discontinued 1 TABLET PO DAILY December 02, 2015 6:33pm October 07, 2019 11:50am Start: 12-02-2015 End: 10-07-2019 take 1 tablet by mouth once daily Vit,Jgvi02-Djpc-Cwlfy Discontinued 1 TABLET PO DAILY December 02, 2015 12:00am October 07, 2019 10:50am Start: 12-02-2015 End: 10-07-2019 take 1 tablet by mouth once daily Vit,Njps19-Oqva-Ptxcx Discontinued 1 TABLET PO DAILY December 02, 2015 1:00am October 07, 2019 11:50am Vit,Jxsy03-Axby-Btxhb 1 TABLET tablet (2 sources) Start: 12-02-2015 End: 10-07-2019 take 1 tablet by mouth once daily Vit,Hrcj42-Afrs-Finjs 1 TABLET tablet Discontinued 1 {tbl} PO DAILY December 02, 2015 1:00am October 07, 2019 11:50am Problems Problem Classification Problem Date Documented Da te Episodic/Chronic Acute bronchitis (1 source) Viral bronchitis; Translations: [Acute bronchitis due to other specified organisms] Episodic Anxiety disorders (12 sources) Anxiety; Translations: [Anxiety disorder, unspecified] 10-07-2019 Chronic Comment on above: counseling recommend ed, christianoo. Cardiac dysrhythmias (2 sources) Palpitations; Translations: [Palpitations] Onset: 01-29-2025 Episodic Diseases of white blood cells (14 sources) Cyclical neutropenia; Translations: [Cyclic neutropenia] 05-03-2018 Chronic Comment on above: Followed with Dr Fuchs n - 2014 approx Nonmalignant breast conditions (9 sources) Breast lump; Translations: [Unspecified lump in the right breast, unspecified quadrant] Onset: 03-26-2025 Episodic Comment on above: imaging ordered, sma ll cyst noted on US 06/14/22 Other circulatory disease (1 source) Wheeze - rhonchi; Translations: [Other specified symptoms and signs involving the circulatory and respiratory systems] Episodic Other female genital disorders (5 sources) Abnormal uterine bleeding; Translations: [Abnormal uterine and vaginal bleeding, unspecified] 01-01-2024 Chronic Other female genital disorders (3 sources) Abnormal uterine and vaginal bleeding, unspecified; Translations: [Unspecified disorders of menstruation and other abnormal bleeding from female genital tract] 01-01-2024 Chronic Other female genital disorders (2 sources) Vaginal discharge; Translations: [Other specified noninflammatory disorders of vagina] 03-26-2025 Episodic Other female genital disorders (1 source) Other specified noninflammatory disorders of vagina; Translations: [Other specified noninflammatory disorders of vagina] Onset: 04-01-2025 Episodic Other gastrointestinal disorders (7 sources) Irritable bowel syndrome; Translations: [Irritable bowel syndrome without diarrhea] 09-16-2020 Chronic Other lower respiratory disease (7 sources) Dyspnea; Translations: [Dyspnea, unspecified] 09-17-2020 Episodic Other screening for suspected conditions (not mental disorders or infectious disease) (1 source) Encounter for screening mammogram for malignant neoplasm of breast; Translations: [Encounter for screening mammogram for malignant neoplasm of breast] Onset: 04-11-2025 Episodic Other upper respiratory infections (2 sources) Acute pharyngitis, unspecified; Translations: [Acute pharyngitis] Episodic Residual codes; unclassified (7 sources) H/O: depression; Translations: [Personal history of other complications of , childbirth and the puerperium] 09-16-2020 Episodic Comment on above: After 1st child - 20 16 Residual codes; unclassified (1 source) FH: Respiratory disease; Translations: [Family history of other diseases of the respiratory system] Episodic Unclassified (2 sources) Invalid ICD10 Description; Translations: [Invalid ICD10 Description] Onset: 12-01-2020 Unclassified (1 source) COVID-19; Translations: [COVID-19] Onset: 12-01-2020 Results Test Name Value Interpretation Reference Range Facility SCRN MAMM (CAD)W/SIRIATammy Kraft n 04-08-2025 SCRN MAMM (CAD)W/SIRIA [facility] Imaging Services [address] [place] [address] SCRN MAMM (CAD)W/SIRIATammy DAVIS MR#: [id number] Acct: [id number] Name: ELIUCESARAUTUMN PERAZA Rep #: [id number] : 1985 F 39 From: Amber Pardo MD PCP: LA NENA Hernandez Status: REG CLI Study: SCRN MAMM (CAD)W/SIRIA BILAT Date of Exam: 03/20 12/13 Exam# [id number] Ordering Dr: Lucille Li CNM EXAM: SCRN MAMM (CAD)W/SIRIA BILAT 04/08/2025 CLINICAL HISTORY: F, Age 39 y/o , BREAST CANCER SCREENING TECHNIQUE: Bilateral screening digital breast tomosynthesis with 2D and 3D images. Computer aided detection. COMPARISON: Prior exam(s) dated 02/22/2024, 06/14/2022. FINDINGS: TISSUE DENSITY: The breast tissue is extremely dense which lowers the sensitivity of mammography. The mammogram demonstrates that the patient has dense breasts. Supplemental screening with whole breast ultrasound or MRI may be considered for further evaluation. Bilateral Breast Mammographic Findings: There are bilateral breast implants. No significant masses, calcifications or other abnormalities are identified. BI/SCRN MAMM (CAD)W/SIRIA BILAT IMPRESSION: Right Breast: BIRADS 1 NEGATIVE. Left Breast: BIRADS 1 NEGATIVE. OVERALL FINAL ASSESSMENT: BIRADS 1 NEGATIVE. RECOMMENDATION: Routine annual follow-up in 1 Year A letter with findings and recommendations will be mailed to the patient. Reading Location: [facility] CC: ANGELICA Li; LA NENA Kim Cloth Grader: Signed [facility] Genital Culture Comprehensiv chris 03-29-2025 VAC Reason for Exam: Vaginal Discharge Pending Staphylococcus aureus Amount Growth 3+ Staphylococcus aureus: REACTION cefOXitin Susc Islt Doxycycline Islt ROBERTO <=0.5 S Clindamycin Islt ROBERTO 0.25 S Clindamycin.induced Susc Islt NEG Erythromycin Islt ROBERTO <=0.25 S Gentamicin Islt ROBERTO <=0.5 S Linezolid Islt ROBERTO 2 S Moxifloxacin Islt ROBERTO <=0.25 S Oxacillin Susc Islt 0.5 S Tetracycline Islt ROBERTO <=1 S TMP SMX Islt ROBERTO <=10 S Vancomycin Islt ROBERTO <=0.5 S Normal [facility] Comment on above: Performed By: #### M 100.2000, M100.3200 #### [facility] [address] [place], [place], [address] Gram Stainon 03-26-2025 GS Reason for Exam: Vaginal Discharge Gram Stain 1+ Gram positive rods 1+ Epithelial cells No Gram negative diplococci Score = 3 Interpretation: 0-3 Normal, 4-6 Intermediate, 7-10 Positive BV Normal [facility] Comment on above: Performed By: #### M 100, M100.3200 #### [facility] [address] [place], [address] Gram stainOrdered By: Lucille Li on 03-26-2025 Microscopic observation Gram stain Nom (Unsp spec) [facility] Silverware Washer Office Visit Reporton 03-26-2025 Silverware Washer Office Visit Report [facility] [address], [address] [place] [address] OFFICE VISIT Date of Service: 03/26/25 MR#: [id number] Acct: [id number] Name: CESAR NOWAK Rep #: [id number] : 1985 Provider: ANGELICA Lovelace ams Age/Sex: 39/F Location: [place] Status: Signed Intake Vital Signs 01/01/24 14:49 03/26/25 09:28 Height 5 ft 8 in 5 ft 8 in Weight: 128 lb 8 oz BMI 19.5 BP 120/85 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: Annual Track 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 Required: No Is patient in pain?: No Allergies amoxicillin (Amoxicillin) Allergy (Intermediate, Verified 03/26/25 09:26) Rash shellfish derived Allergy (Intermediate, Verified 03/26/25 09:26) Swelling Medications ???Medication ???Instructions ???Recorded ???Confirmed ???Type cholecalciferol (vitamin D3) 25 25 mcg PO QDAY 03/26/25 03/26/25 H istory mcg (1,000 unit) capsule metronidazole 500 mg tablet 500 mg PO BID #14 tabs 03/26/25 Rx Is last menstrual period known: Yes Last Menstrual Period: 05/05/25 Post menopausal: No PFSH Medical History H/O methicillin resistant Staphylococcus aureus History of vaginal delivery IBS (irritable bowel syndrome) History of depression Neutropenia Anxiety Surgical History H/O breast augmentation History of bone marrow biopsy [place] teeth extracted Family History Mother Heart disease Arthritis Depression Osteoporosis Skin cancer Father Hypertension Blood clot in vein Brother Anxiety Grandmother Cervical cancer Melanoma Social History household members: spouse and children number of children: 2 current occupational status: employed current occupation: [employer] Smoking Status: Never smoker alcohol intake: current alcohol intake frequency: holidays/special occasions only substance use type: does not use what type of physical activity do you participate in: bicycling frequency: 3-4 times per week seatbelt use: always do you feel safe at home: Yes additional social history: - Venkatesh History 2 Elective abortions Hx Para 2 Spontaneous abortions Hx # Term Pregnancies Ectopic pregnancies Hx # Pregnancies Multiple births # of living children 2 Past Pregnancies Del. Date Name GA/Weeks Outcome Route Bth Weight Infant Gen Labor Lgth Anesthesia Del Locatn Provider FOB Unknown Shaji 2016 Unknown Anthony 2018 HPI Encounter for routine gynecological examination Details: CESAR NOWAK is a 39 year old who presents for annual exam. increasing in frequency of menses- about every 3 weeks. light in flow. declines OCP at this time- had vasectomy. has no ticed some increase in discharge and possible fishy odor. requesting swab for BV. mammograms for hx of abnormal. Last PAP: 01/01/24 History of abnormal PAP: No Last mammogram: 02/22/24, US 02/27/24 2 nodules at 1100 left breast History of abnormal mammogram: [] Colon cancer screening: Due at 45 yrs old Other preventative health care screenings: PCP Female Reproductive History Last Menstrual Period: 03/23/25 Cycle Length: 21-35 Bleeding Duration: 4 Questions: sexually active: Yes, dyspareunia: No and PCB: No ROS Const Constitutional: Reports system reviewed and no additional complaints, except as documented Cardio Card: Reports system reviewed and no additional complaints, except as documented Resp Resp: Reports system reviewed and no additional complaints, except as documented GI GI: Reports system reviewed and no additional complaints, except as documented : Reports system reviewed and no additional complaints, except as documented; Denies difficulty voiding, dysuria or urinary frequency Skin Skin/Breast: Reports system reviewed and no additional complaints, except as documented Neuro Neuro: Reports system reviewed and no additional complaints, except as documented Psych Psych: Reports system reviewed and no additional complaints, except as documented; Denies anhedonia, anxiety or depression Exam Const General: cooperative, healthy appearing, comfortable and no acute distress Orientation: alert, awake and oriented x3 Neck Neck: normal visual inspection and full ROM Thyroid: thyroid normal Chest Breast inspection: normal inspection of the breasts and normal inspection of the axillae Breast palpation: normal palpation of the breasts and normal palpation of the axillae Resp Effort Inspection: normal respiratory effort, able to speak in complete sentences and symmetric chest movement GI Inspection: (more content not included)... Normal [facility] Absolute lymphocyte countOrd ered By: [facility] on 01-19-2025 Lymphocytes Auto (Unsp spec) [#/Vol] 1.23 10*3/uL 0.83-4.51 [facility] Absolute neutrophil countOrd ered By: [facility] on 01-19-2025 Neutrophils (Bld) [#/Vol] 2.8 10*3/uL 2.0-7.7 [facility] Automated lymphocyte count a s percentage of total leukocytesOrdered By: [facility] on 01-19-2025 Lymphocytes/100 WBC Auto (Unsp spec) 27.4 % 19-41 [facility] BUN/creatinine ratioOrdered By: [facility] on 01-19-2025 Urea nitrogen/Creatinine [Mass ratio] 14.0 mg/mg 10-20 [facility] Basophil percentageOrdered B y: [facility] on 01-19-2025 Basophils/100 WBC (Bld) 0.4 % 0-1 [facility] Bilirubin, totalOrdered By: Linda Vargas on 01-19-2025 Bilirubin [Mass/Vol] 0.54 mg/dL 0.00-1.30 [facility] CBC W/Diff, Automatedon 03-0 3-2025 Absolute Lymph 1.23 X10 3/uL Normal 0.83-4.51 [facility] Comment on above: Performed By: #### L 500.4050, L500.4100, L501.9985, L100.0100, L501.5200, L501.9520 #### [facility] [address] [place], [address] Absolute Neut 2.8 X10 3/uL Normal 2.0-7.7 [facility] Comment on above: Performed By: #### L 500.4050, L500.4100, L501.9985, L100.0100, L501.5200, L501.9520 #### [facility] [address] [place], [address] Basophils/100 WBC (Bld) 0.4 % Normal 0-1 [facility] Comment on above: Performed By: #### L 500.4050, L500.4100, L501.9985, L100.0100, L501.5200, L501.9520 #### [facility] [address] [place], [address] Eosinophils/100 WBC (Bld) 1.3 % Normal 0-5 [facility] Comment on above: Performed By: #### L 500.4050, L500.4100, L501.9985, L100.0100, L501.5200, L501.9520 #### [facility] [address] [place], [address] Erythrocyte distribution width (RBC) [Ratio] 12.1 % Normal 11.6-14.6 [facility] Comment on above: Performed By: #### L 500.4050, L500.4100, L501.9985, L100.0100, L501.5200, L501.9520 #### [facility] [address] [place], [address] Hematocrit (Bld) [Volume fraction] 43.0 % Normal 37-47 [facility] Comment on above: Performed By: #### L 500.4050, L500.4100, L501.9985, L100.0100, L501.5200, L501.9520 #### [facility] [address] [place], [address] Hemoglobin (Bld) [Mass/Vol] 14.4 g/dL Normal 12.0-15.0 [facility] Comment on above: Performed By: #### L 500.4050, L500.4100, L501.9985, L100.0100, L501.5200, L501.9520 #### [facility] [address] [facility] [place], [address] IG% 0.200 Normal 0.0-0.9 [facility] Comment on above: Result Comment: IG% - Immature Granulocytes (promyelocytes, myelocytes and metamyelocytes) > 1% indicates that a LEFT SHIFT is Present. Performed By: #### L 500.4050, L500.4100, L501.9985, L100.0100, L501.5200, L501.9520 #### [facility] [address] [facility] [place], [address] Lymphocytes/100 WBC (Bld) 27.4 % Normal 19-41 [facility] Comment on above: Performed By: #### L 500.4050, L500.4100, L501.9985, L100.0100, L501.5200, L501.9520 #### [facility] [address] [place], [address] MCH (RBC) [Entitic mass] 30.1 pg Normal 27.0-32.0 [facility] Comment on above: Performed By: #### L 500.4050, L500.4100, L501.9985, L100.0100, L501.5200, L501.9520 #### [facility] [address] [place], [address] MCHC (RBC) [Mass/Vol] 33.5 g/dL Normal 32-36 [facility] Comment on above: Performed By: #### L 500.4050, L500.4100, L501.9985, L100.0100, L501.5200, L501.9520 #### [facility] [address] [place], [address] MCV (RBC) [Entitic vol] 89.8 fL Normal 81-99 [facility] Comment on above: Performed By: #### L 500.4050, L500.4100, L501.9985, L100.0100, L501.5200, L501.9520 #### [facility] [address] [place], [address] Monocytes/100 WBC (Bld) 8.0 % Normal 0-10 [facility] Comment on above: Performed By: #### L 500.4050, L500.4100, L501.9985, L100.0100, L501.5200, L501.9520 #### [facility] [address] [place], [address] Neutrophils/100 WBC (Bld) 62.7 % Normal 47-70 [facility] Comment on above: Performed By: #### L 500.4050, L500.4100, L501.9985, L100.0100, L501.5200, L501.9520 #### [facility] [address] [place], [address] Nucleated RBC (Bld) [#/Vol] 0 10*3/uL Normal 0-5 [facility] Comment on above: Performed By: #### L 500.4050, L500.4100, L501.9985, L100.0100, L501.5200, L501.9520 #### [facility] [address] [place], [address] Platelet mean volume (Bld) [Entitic vol] 10.6 fL Normal 6.2-12.0 [facility] Comment on above: Performed By: #### L 500.4050, L500.4100, L501.9985, L100.0100, L501.5200, L501.9520 #### [facility] [facility] [address] [place], [address] Platelets (Bld) [#/Vol] 267 10*3/uL Normal 150-450 [facility] Comment on above: Performed By: #### L 500.4050, L500.4100, L501.9985, L100.0100, L501.5200, L501.9520 #### [facility] [address] [place], [address] RBC (Bld) [#/Vol] 4.79 10*6/uL Normal 4.2-5.4 [facility] Comment on above: Performed By: #### L 500.4050, L500.4100, L501.9985, L100.0100, L501.5200, [id number] #### [facility] [address] [place], [address] RDW SD 39.4 fl Normal 35.1-43.9 [facility] Comment on above: Performed By: #### L 500.4050, L500.4100, L501.9985, L100.0100, L501.5200, [id number] #### [facility] [address] [place], [address] WBC (Bld) [#/Vol] 4.5 10*3/uL Normal 4.4-11.0 [facility] Comment on above: Performed By: #### L 500.4050, L500.4100, L501.9985, L100.0100, L501.5200, L501.9520 #### [facility] [address] [place], [address] Calculated very low density lipoprotein (VLDL) cholesterol measurementOrdered By: Zebulun Beam on 01-19-2025 Calculated very low density lipoprotein (VLDL) cholesterol measurement 16 mg/dL 5-40 [facility] VLDL Cholesterol 16 mg/dL 5-40 [facility] Carbon dioxide measurementOr dered By: Zebulun Beam on 01-19-2025 CO2 [Moles/Vol] 20.5 mmol/L Low 22.0-29.0 [facility] Chloride measurementOrdered By: Zebulun Beam on 01-19-2025 Chloride [Moles/Vol] 104 mmol/L 96-108 [facility] Comprehensive Metabolic Prof ilon 01-19-2025 Albumin [Mass/Vol] 4.5 g/dL Normal 3.5-5.0 [facility] Comment on above: Performed By: #### L 500.4050, L500.4100, L501.9985, L100.0100, L501.5200, L501.9520 #### [facility] [address] [place], [address] Albumin/Globulin [Mass ratio] 1.4 {ratio} Normal 0.9-2.4 [facility] Comment on above: Performed By: #### L 500.4050, L500.4100, L501.9985, L100.0100, L501.5200, L501.9520 #### [facility] [address] [place], [address] ALK PHOS 58 U/L Normal 35-104 [facility] Comment on above: Performed By: #### L 500.4050, L500.4100, L501.9985, L100.0100, L501.5200, L501.9520 #### [facility] [address] [place], [address] ALT [Catalytic activity/Vol] 16 U/L Normal <=34 [facility] Comment on above: Performed By: #### L 500.4050, L500.4100, L501.9985, L100.0100, L501.5200, L501.9520 #### [facility] [address] [place], [address] Anion gap [Moles/Vol] 14 mmol/L Normal 5-15 [facility] Comment on above: Performed By: #### L 500.4050, L500.4100, L501.9985, L100.0100, L501.5200, L501.9520 #### [facility] [address] [place], [address] AST [Catalytic activity/Vol] 30 U/L Normal <=31 [facility] Comment on above: Performed By: #### L 500.4050, L500.4100, L501.9985, L100.0100, L501.5200, L501.9520 #### [facility] [address] [place], [address] Bilirubin [Mass/Vol] 0.54 mg/dL Normal 0.00-1.30 [facility] Comment on above: Performed By: #### L 500.4050, L500.4100, L501.9985, L100.0100, L501.5200, L501.9520 #### [facility] [address] [place], [address] BUN/CRE 14.0 RATIO Normal 10-20 [facility] Comment on above: Performed By: #### L 500.4050, L500.4100, L501.9985, L100.0100, L501.5200, L501.9520 #### [facility] [address] [place], [address] Calcium [Mass/Vol] 9.2 mg/dL Normal 7.6-11.0 [facility] Comment on above: Performed By: #### L 500.4050, L500.4100, L501.9985, L100.0100, L501.5200, L501.9520 #### [facility] [address] [place], [address] Chloride [Moles/Vol] 104 mmol/L Normal 96-108 [facility] Comment on above: Performed By: #### L 500.4050, L500.4100, L501.9985, L100.0100, L501.5200, L501.9520 #### [facility] [address] [place], [address] CO2 [Moles/Vol] 20.5 mmol/L Low 22.0-29.0 [facility] Comment on above: Performed By: #### L 500.4050, L500.4100, L501.9985, L100.0100, L501.5200, L501.9520 #### [facility] [address] [place], [address] Creatinine [Mass/Vol] 0.81 mg/dL Normal 0.70-1.20 [facility] Comment on above: Performed By: #### L 500.4050, L500.4100, L501.9985, L100.0100, L501.5200, L501.9520 #### [facility] [address] [place], [address] GFR/1.73 sq M.predicted among non-blacks MDRD (S/P/Bld) [Vol rate/Area] 95 mL/min/{1.73_m2} Normal >60 [facility] Comment on above: Result Comment: mL/m in/1.73m2 CKD-EPI Creatinine Equation (2020) Performed By: #### L 500.4050, L500.4100, L501.9985, L100.0100, L501.5200, L501.9520 #### [facility] [address] [place], [address] Globulin (S) [Mass/Vol] 3.2 g/dL Normal 2.2-4.2 [facility] Comment on above: Performed By: #### L 500.4050, L500.4100, L501.9985, L100.0100, L501.5200, L501.9520 #### [facility] [address] [place], [address] Glucose [Mass/Vol] 82 mg/dL Normal 70-99 [facility] Comment on above: Performed By: #### L 500.4050, L500.4100, L501.9985, L100.0100, L501.5200, L501.9520 #### [facility] [address] [place], [address] Potassium [Moles/Vol] 3.9 mmol/L Normal 3.3-5.1 [facility] Comment on above: Performed By: #### L 500.4050, L500.4100, L501.9985, L100.0100, L501.5200, L501.9520 #### [facility] [address] [place], [address] Sodium [Moles/Vol] 139 mmol/L Normal 133-145 [facility] Comment on above: Performed By: #### L 500.4050, L500.4100, L501.9985, L100.0100, L501.5200, L501.9520 #### [facility] [address] [place], [address] T PROT 7.7 g/dL Normal 5.9-8.4 [facility] Comment on above: Performed By: #### L 500.4050, L500.4100, L501.9985, L100.0100, L501.5200, L501.9520 #### [facility] [address] [place], [address] Urea nitrogen [Mass/Vol] 11 mg/dL Normal 4-19 [facility] Comment on above: Performed By: #### L 500.4050, L500.4100, L501.9985, L100.0100, L501.5200, L501.9520 #### [facility] [address] [facility] [place], [address] Eosinophil percentageOrdered By: tia Vargas on 01-19-2025 Eosinophils/100 WBC (Bld) 1.3 % 0-5 [facility] Erythrocyte distribution wid th ratioOrdered By: [facility] on 01-19-2025 Erythrocyte distribution width (RBC) [Ratio] 12.1 % 11.6-14.6 [facility] Erythrocyte distribution wid th standard deviationOrdered By: [facility] on 01-19-2025 Erythrocyte distribution width (RBC) [Entitic vol] 39.4 fL 35.1-43.9 [facility] Erythrocyte distribution width (RBC) [Ratio] 39.4 fl 35.1-43.9 [facility] GFR/1.73 sq M.predicted jeramei g non-blacks MDRD (S/P/Bld) [Vol rate/Area]Ordered By: Linda Vargas on 01-19-2025 Estimated GFR (MDRD) Non-Af Amer 95 >60 [facility] Comment on above: mL/min/1.73m2 CKD-EP I Creatinine Equation (2020) Glomerular filtration rate ( GFR) estimation/1.73 sq m using serum, plasma, or whole bOrdered By: Linda Vargas on 01-19-2025 GFR/1.73 sq M.predicted among non-blacks MDRD (S/P/Bld) [Vol rate/Area] 95 mL/min/{1.73_m2} >60 [facility] Comment on above: mL/min/1.73m2 CKD-EP I Creatinine Equation (2020) Hematocrit Auto (Bld) [Volum e fraction]Ordered By: Linda Vargas on 01-19-2025 Hematocrit (Bld) [Volume fraction] 43.0 % 37-47 [facility] Hemoglobin A1con 01-19-2025 HbA1c (Bld) [Mass fraction] 5.2 % Low <=5.6 [facility] Comment on above: Performed By: #### L 500.4050, L500.4100, L501.9985, L100.0100, L501.5200, L501.9520 #### [facility] [address] [place], [address] Hemoglobin A1c percentageOrd ered By: Linda Vargas on 01-19-2025 HbA1c (Bld) [Mass fraction] 5.2 % Low >5.7 [facility] Hemoglobin measurementOrdere d By: Linda Vargas on 01-19-2025 Hemoglobin (Bld) [Mass/Vol] 14.4 g/dL 12.0-15.0 [facility] Immature granulocytes/100 WB C Auto (Bld)Ordered By: Linda Vargas on 01-19-2025 Immature granulocytes/100 WBC (Bld) 0.200 % 0.0-0.9 [facility] Comment on above: IG% - Immature Granu locytes (promyelocytes, myelocytes and metamyelocytes) > 1% indicates that a LEFT SHIFT is Present. LDL calc ser/plasOrdered By: Linda Vargas on 01-19-2025 Cholesterol in LDL [Mass/Vol] 69 mg/dL [facility] Comment on above: Mfvxgeravo=521-120 m g/dL & Higher Luer=984 mg/dL or greater LDL Cholesterol, Calculated 69 mg/dL [facility] Comment on above: Tvsiezsapa=243-451 m g/dL & Higher Esnc=306 mg/dL or greater Laboratory - Chemistry and C hemistry - challengeOrdered By: Linda Vargas on 01-19-2025 AST [Catalytic activity/Vol] 30 U/L <32 [facility] Lipid Profileon 01-19-2025 CHOL:HDL 1.79 Normal [facility] Comment on above: Performed By: #### L 500.4050, L500.4100, L501.9985, L100.0100, L501.5200, L501.9520 #### [facility] [address] [place], [address] Cholesterol [Mass/Vol] 192 mg/dL Normal <=200 [facility] Comment on above: Result Comment: Chol esterol level, Desirable <200 mg/dL Borderline high cholesterol 200-239 mg/dL High cholesterol >=240 mg/dL Recommendations of the NCEP Adult Treatment Panel for the following risk-cutoff thresholds for the [place] population. Performed By: #### L 500.4050, L500.4100, L501.9985, L100.0100, L501.5200, L501.9520 #### [facility] [address] [place], [address] Cholesterol in HDL [Mass/Vol] 107 mg/dL Normal [facility] Comment on above: Result Comment: Carlene onal Cholesterol Education Program (NCEP) guidelines: <40 mg/dL: Low HDL-cholesterol (major risk factor for CHD) >= 60 mg/dL: High HDL-cholesterol (negative risk factor for CHD) HDL-cholesterol is affected by a number of factors, e.g. smoking, exercise, hormones, sex and age. Performed By: #### L 500.4050, L500.4100, L501.9985, L100.0100, L501.5200, L501.9520 #### [facility] [address] [place], [address] Cholesterol in LDL [Mass/Vol] 69 mg/dL Normal [facility] Comment on above: Result Comment: Bord wgrkwp=224-918 mg/dL Higher Xopg=586 mg/dL or greater Performed By: #### L 500.4050, L500.4100, L501.9985, L100.0100, L501.5200, L501.9520 #### [facility] [address] [place], [address] Cholesterol in VLDL [Mass/Vol] 16 mg/dL Normal 5-40 [facility] Comment on above: Performed By: #### L 500.4050, L500.4100, L501.9985, L100.0100, L501.5200, L501.9520 #### [facility] [address] [place], [address] Triglyceride [Mass/Vol] 80 mg/dL Normal [facility] Comment on above: Result Comment: The drugs N-Acetylcysteine and Metamizole may falsely depress this assay. Normal range: <150 mg/dL Borderline High: 150-199 mg/dL High: 200-499 mg/dL Very High: >500 mg/dL Performed By: #### L 500.4050, L500.4100, L501.9985, L100.0100, L501.5200, L501.9520 #### [facility] [address] [facility] [place], [address] Lymphocytes Auto (Unsp spec) [#/Vol]Ordered By: Zebulun Beam on 01-19-2025 Lymphocytes (Bld) [#/Vol] 1.23 10*3/uL 0.83-4.51 [facility] Lymphocytes/100 WBC Auto (Un sp spec)Ordered By: Zebulun Beam on 01-19-2025 Lymphocytes/100 WBC (Bld) 27.4 % 19-41 [facility] MCV (mean corpuscular volume ) determinationOrdered By: Zebulun Beam on 01-19-2025 MCV (RBC) [Entitic vol] 89.8 fL 81-99 [facility] Magnesiumon 01-19-2025 Magnesium [Mass/Vol] 2.3 mg/dL High 1.5-2.2 [facility] Comment on above: Performed By: #### L 500.4050, L500.4100, L501.9985, L100.0100, L501.5200, L501.9520 #### [facility] [address] [place], [address] Magnesium (Unsp spec) [Mass/ Vol]Ordered By: Zebulun Beam on 01-19-2025 Magnesium [Mass/Vol] 2.3 mg/dL High 1.5-2.2 [facility] Magnesium measurement (mass/ volume)Ordered By: Jaylun Beam on 01-19-2025 Magnesium (Unsp spec) [Mass/Vol] 2.3 mg/dL High 1.5-2.2 [facility] Mean corpuscular hemoglobin (MCH) determinationOrdered By: Zebulun Beam on 01-19-2025 MCH (RBC) [Entitic mass] 30.1 pg 27.0-32.0 [facility] Mean corpuscular hemoglobin concentration (MCHC) determinationOrdered By: Zebulun Beam on 01-19-2025 MCHC (RBC) [Mass/Vol] 33.5 g/dL 32-36 [facility] Mean platelet volume determi nationOrdered By: Zestephylun Beam on 01-19-2025 Platelet mean volume (Bld) [Entitic vol] 10.6 fL 6.2-12.0 [facility] Monocyte percentageOrdered B y: Zelisbetn Beam on 01-19-2025 Monocytes/100 WBC (Bld) 8.0 % 0-10 [facility] Neutrophil percentageOrdered By: Zestephylun Beam on 01-19-2025 Neutrophils/100 WBC (Bld) 62.7 % 47-70 [facility] Nucleated red blood cell per centageOrdered By: Zestephylun Beam on 01-19-2025 Nucleated RBC/100 WBC (Bld) [Ratio] 0 % 0-5 [facility] Platelet countOrdered By: Nadeem Vargas on 01-19-2025 Platelets (Bld) [#/Vol] 267 10*3/uL 150-450 [facility] RBC Auto (Bld) [#/Vol]Ordere d By: Zebulun Beam on 01-19-2025 RBC (Bld) [#/Vol] 4.79 10*6/uL 4.2-5.4 [facility] Screening total cholesterol/ high density lipoprotein (HDL) cholesterol ratioOrdered By: Zestephylun Beam on 01-19-2025 Cholesterol.total/Choles terol in HDL [Mass ratio] 1.79 {ratio} [facility] Serum creatinine measurement (mass/volume)Ordered By: Linda Beam on 01-19-2025 Creatinine [Mass/Vol] 0.81 mg/dL 0.70-1.20 [facility] Serum globulin measurementOr dered By: Linda Vargas on 01-19-2025 Globulin (S) [Mass/Vol] 3.2 g/dL 2.2-4.2 [facility] Serum glucose measurement (m ass/volume)Ordered By: Linda Vargas on 01-19-2025 Glucose [Mass/Vol] 82 mg/dL 70-99 [facility] Serum or plasma alanine monsalve otransferase (ALT) measurementOrdered By: Linda Vargas on 01-19-2025 ALT [Catalytic activity/Vol] 16 U/L <35 [facility] Serum or plasma albumin casimiro urement (mass/volume)Ordered By: Linda Vargas on 01-19-2025 Albumin [Mass/Vol] 4.5 g/dL 3.5-5.0 [facility] Serum or plasma albumin/glob ulin mass ratioOrdered By: Linda Vargas on 01-19-2025 Albumin/Globulin [Mass ratio] 1.4 {ratio} 0.9-2.4 [facility] Serum or plasma alkaline irma sphatase measurementOrdered By: Linda Vargas on 01-19-2025 ALP [Catalytic activity/Vol] 58 U/L 35-104 [facility] Serum or plasma anion gap de termination (moles/volume)Ordered By: Linda Vargas on 01-19-2025 Anion gap [Moles/Vol] 14 mmol/L 5-15 [facility] Serum or plasma calcium casimiro urement (mass/volume)Ordered By: Linda Vargas on 01-19-2025 Calcium [Mass/Vol] 9.2 mg/dL 7.6-11.0 [facility] Serum or plasma cholesterol in HDL measurement (mass/volume)Ordered By: Linda Vargas on 01-19-2025 Cholesterol in HDL [Mass/Vol] 107 mg/dL >40 [facility] Comment on above: National Cholesterol Education Program (NCEP) guidelines:<40 mg/dL: Low HDL-cholesterol (major risk factor for CHD)>= 60 mg/dL: High HDL-cholesterol (negative risk factor for CHD)HDL-cholesterol is affected by a number of factors, e.g. smoking, exercise, hormones, sex and age. Serum or plasma cholesterol measurement (mass/volume)Ordered By: Linda Vargas on 01-19-2025 Cholesterol [Mass/Vol] 192 mg/dL <201 [facility] Comment on above: Cholesterol level, D esirable <200 mg/dLBorderline high cholesterol 200-239 mg/dLHigh cholesterol >=240 mg/dLRecommendations of the NCEP Adult Treatment Panel for the following risk-cutoff thresholds for the [place] population. Serum or plasma potassium me asurementOrdered By: Linda Vargas on 01-19-2025 Potassium [Moles/Vol] 3.9 mmol/L 3.3-5.1 [facility] Serum or plasma sodium measu rement (moles/volume)Ordered By: Linda Vargas on 01-19-2025 Sodium [Moles/Vol] 139 mmol/L 133-145 [facility] Serum or plasma urea nitroge n measurement (mass/volume)Ordered By: Linda Vargas on 01-19-2025 Urea nitrogen [Mass/Vol] 11 mg/dL 4-19 [facility] TSH DL <= 0.005 mIU/L QnOrde red By: Linda Vargas on 01-19-2025 Thyroid Stimulating Hormone (TSH) 3.220 uIU/mL 0.300-4.200 [facility] TSH Qn 3.220 uIU/mL 0.300-4.200 [facility] Thyroid Stim Hormone (TSH)on 01-19-2025 TSH 3.220 uIU/mL Normal 0.300-4.200 [facility] Comment on above: Performed By: #### L 500.4050, L500.4100, L501.9985, L100.0100, L501.5200, L501.9520 #### [facility] [address] [place], [address] Total proteinOrdered By: Donnie Vargas on 01-19-2025 Protein [Mass/Vol] 7.7 g/dL 5.9-8.4 [facility] Triglycerides measurementOrd ered By: Linda Vargas on 01-19-2025 Triglyceride [Mass/Vol] 80 mg/dL <199 [facility] Comment on above: The drugs N-Acetylcy steine and Metamizole may falsely depress this assay. Normal range: <150 mg/dLBorderline High: 150-199 mg/dLHigh: 200-499 mg/dLVery High: >500 mg/dL White blood cell (WBC) count Ordered By: Linda Vargas on 01-19-2025 WBC (Bld) [#/Vol] 4.5 10*3/uL 4.4-11.0 [facility] Absolute lymphocyte countOrd ered By: Av Kim on 01-24-2024 Lymphocytes Auto (Unsp spec) [#/Vol] 0.97 10*3/uL 0.83-4.51 [facility] Automated lymphocyte count a s percentage of total leukocytesOrdered By: Av Kim on 01-24-2024 Lymphocytes/100 WBC Auto (Unsp spec) 21.0 % 19-41 [facility] Basophil percentageOrdered B y: Av Kim on 01-24-2024 Basophils/100 WBC (Bld) 0.2 % 0-1 [facility] Bilirubin [Mass/Vol] 0.50 mg/dL 0.20-1.00 [facility] Comment on above: For patients on eltr ombopag therapy, use of Dimension Hagaman TBIL is not recommended. Chloride [Moles/Vol] 106 mmol/L 98-107 [facility] Cholesterol [Mass/Vol] 172 mg/dL <200 [facility] Comment on above: <200 mg/dL Desirable 200-240 mg/dL Borderline >240 mg/dL High Risk Eosinophils/100 WBC (Bld) 1.7 % 0-5 [facility] Glucose [Mass/Vol] 79 mg/dL 74-106 [facility] Hemoglobin (Bld) [Mass/Vol] 13.5 g/dL 12.0-15.0 [facility] Monocytes/100 WBC (Bld) 7.8 % 0-10 [facility] Neutrophils (Bld) [#/Vol] 3.2 10*3/uL 2.0-7.7 [facility] Neutrophils/100 WBC (Bld) 69.1 % 47-70 [facility] Potassium [Moles/Vol] 3.6 mmol/L 3.5-5.1 [facility] Protein [Mass/Vol] 7.3 g/dL 6.4-8.2 [facility] Sodium [Moles/Vol] 139 mmol/L 136-145 [facility] Triglyceride [Mass/Vol] 44 mg/dL <199 [facility] Comment on above: The drugs N-Acetylcy steine and Metamizole may falsely depress this assay.Serum Triglycerides Reference Interval Normal <150 mg/dL Borderline high 150 - 199 mg/dL High 200 - 499 mg/dL Very High > or = 500 mg/dL WBC (Bld) [#/Vol] 4.6 10*3/uL 4.4-11.0 [facility] Determination of erythrocyte mean corpuscular volume (MCV)Ordered By: Av Kim on 01-24-2024 MCV (RBC) [Entitic vol] 90.7 fL 81-99 [facility] Erythrocyte distribution wid th ratioOrdered By: Av Kim on 01-24-2024 Erythrocyte distribution width (RBC) [Ratio] 12.0 % 11.6-14.6 [facility] Erythrocyte distribution wid th standard deviationOrdered By: Av Kim on 01-24-2024 Erythrocyte distribution width (RBC) [Entitic vol] 39.6 fL 35.1-43.9 [facility] Hematocrit Auto (Bld) [Volum e fraction]Ordered By: Av Kim on 01-24-2024 Hematocrit (Bld) [Volume fraction] 39.8 % 37-47 [facility] Immature granulocytes/100 WB C Auto (Bld)Ordered By: Av Kim on 01-24-2024 Immature granulocytes/100 WBC (Bld) 0.200 % 0.0-0.9 [facility] Comment on above: IG% - Immature Granu locytes (promyelocytes, myelocytes and metamyelocytes) > 1% indicates that a LEFT SHIFT is Present. Laboratory - Chemistry and C hemistry - challengeOrdered By: Av Kim on 01-24-2024 Albumin/Globulin [Mass ratio] 0.9 {ratio} 0.9-2.4 [facility] ALP [Catalytic activity/Vol] 53 U/L 45-117 [facility] ALT [Catalytic activity/Vol] 20 U/L 13-56 [facility] Cholesterol in HDL [Mass/Vol] 92 mg/dL >40 [facility] Comment on above: The drugs N-Acetylcy steine and Metamizole may falsely depress this assay. Reference Range HDL <40 mg/dL Low HDL Cholesterol HDL >or= 60 mg/dL High HDL Cholesterol Cholesterol in LDL [Mass/Vol] 71 mg/dL 0-130 [facility] CO2 [Moles/Vol] 26.0 mmol/L 21.0-32.0 [facility] Cobalamin (Vitamin B12) [Mass/Vol] 241 pg/mL 211-911 [facility] Globulin (S) [Mass/Vol] 3.8 g/dL 2.2-4.2 [facility] Urea nitrogen/Creatinine [Mass ratio] 18.2 mg/mg 10-20 [facility] Laboratory - Hematology and Cell countsOrdered By: Av Kim on 01-24-2024 MCH (RBC) [Entitic mass] 30.8 pg 27.0-32.0 [facility] MCHC (RBC) [Mass/Vol] 33.9 g/dL 32-36 [facility] Nucleated RBC/100 WBC (Bld) [Ratio] 0 % 0-5 [facility] Platelet mean volume (Bld) [Entitic vol] 10.2 fL 6.2-12.0 [facility] Platelets (Bld) [#/Vol] 227 10*3/uL 150-450 [facility] No Panel InformationOrdered By: Av Kim on 01-24-2024 Estimated GFR (MDRD) Amer 99 mL/min >60 [facility] Comment on above: GFR Calc Estimated GFR (MDRD) Non-Af Amer 82 mL/min >60 [facility] Comment on above: Non- GFR Calc Vitamin D 25-Hydroxy 25.3 ng/mL [facility] Comment on above: Vitamin D 25(OH) Sta tus Range Deficiency <20 ng/mL (50nmol/L) Insufficiency 20 - 30 ng/mL (50 - 75 nmol/L) Sufficiency 30 - 100 ng/mL (75 - 250 nmol/L) Toxicity >100 ng/mL (>250 nmol/L) VLDL Cholesterol 9 mg/dL 5-40 [facility] RBC Auto (Bld) [#/Vol]Ordere d By: Av Kim on 01-24-2024 RBC (Bld) [#/Vol] 4.39 10*6/uL 4.2-5.4 [facility] Serum or plasma calcium casimiro urement (mass/volume)Ordered By: Av Kim on 01-24-2024 Calcium [Mass/Vol] 8.6 mg/dL 8.5-10.1 [facility] Serum or plasma creatinine m easurement (mass/volume)Ordered By: Av Kim on 01-24-2024 Creatinine [Mass/Vol] 0.82 mg/dL 0.55-1.02 [facility] Comment on above: The validity of the calculated GFR & GFRAA in patients over 70 years has not been determined. Clinical correlation is essential. Serum or plasma urea nitroge n measurement (mass/volume)Ordered By: Av Kim on 01-24-2024 Urea nitrogen [Mass/Vol] 15 mg/dL 7-18 [facility] Thin prep Papanicolaou smear with manual screeningOrdered By: Av Kim on 01-24-2024 Thin prep Papanicolaou smear with manual screening 3.5 g/dL 3.2-5.0 [facility] Thin prep Papanicolaou smear with manual screening 23 U/L 15-37 [facility] Thin prep Papanicolaou smear with manual screening 7 5-15 [facility] Cervical or vaginal specimen microscopic examination by liquid based cytology (reportOrdered By: Estefania Sesay on 01-01-2024 Cytology report Cyto stain.thin prep Doc (Cvx/Vag) Comment . [facility] Comment on above: Criteria not met, HP V Genotype not performed.Performed at: - [address] [id number] Director: Humera Murray MD, Phone: [phone] at: = - [facility] [id number] Director: Humera Murray MD, Phone: [phone] Cervical or vagninal specime n microscopic examination by cytology stain (reported asOrdered By: Estefania Sesay on 01-01-2024 Cytology report Cyto stain Doc (Cvx/Vag) Comment . [facility] Comment on above: The Pap smear is a s creening test designed to aid in thedetection of premalignant and malignant conditions of theuterine cervix. It is not a diagnostic procedure andshould not be used as the sole means of detecting cervicalcancer. Both false-positive and false-negative reports dooccur. Detection in cervical specim en of any of human papilloma virus (HPV) 16, 18, 31, 33,Ordered By: Estefania Sesay on 01-01-2024 HPV 16+18+31+33+35+39+45+51+ 52+56+58+59+66+68 DNA Probe+sig amp Ql (Cvx) Negative Negative [facility] Comment on above: This nucleic acid am plification test detects fourteen high-risk HPV types (16,18,31,33,35,39,45,51,52,56,58,59,66,68)without differentiation. Laboratory - CytologyOrdered By: Estefania Sesay on 01-01-2024 [place] Operator Cyto stain Nom (Cvx/Vag) [ID] Comment . [facility] Comment on above: Remy Valdivia totechnologist (ASCP) Laboratory - Miscellaneous t estsOrdered By: Estefania Sesay on 01-01-2024 Service comment (Unsp spec) [Interp] . . [facility] Serum or plasma thyroid stim ulating hormone (TSH) measurement (units/volume)Ordered By: Estefania Sesay on 01-01-2024 TSH Qn 1.97 uIU/mL 0.358-3.74 [facility] Serum or plasma thyroperoxid ase antibody assay (units/volume)Ordered By: Estefania Sesay on 01-01-2024 TPO Ab Qn 12 [IU]/mL 0-34 [facility] Comment on above: Performed at: [address] [id number] Director: Eliseo Kim PhD, Phone: [phone] Thin prep Papanicolaou smear with manual screeningOrdered By: Estefania Sesay on 01-01-2024 Thin prep Papanicolaou smear with manual screening Comment . [facility] Comment on above: NEGATIVE FOR INTRAEP ITHELIAL LESION OR MALIGNANCY. This liquid based Th inPrep(R) pap test was screened withthe use of an image guided system. Thin prep Papanicolaou smear with manual screening 1.10 ng/dL 0.76-1.46 [facility] CNOVon 01-29-2023 CNOV Office Visit (PEDSWS ) CESAR NOWAK ([id number]) 1985 F Date Time Provider Department 01/29/23 3:00 PM NURSE PEDS [facility] During your visit today, we recorded the following information about you: Chase Floyd MD 01/29/2023 4:19 PM Signed Her son Shaji was seen in the office today. 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 Mother was tested for carrier state. 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 - Norgestimate-Ethinyl Estradiol (TRI-SPRINTEC) 0.18/0.215/0.25 mg-35 mcg (28) Tab Take by mouth. - hyoscyamine sublingual 0.125 mg Subl Dissolve 0.125 mg under the tongue before meals and at bedtime. - AMITRIPTYLINE HCL (ELAVIL ORAL) Take by mouth. Problem List As Of Date: 01/29/2023 (None) Encounter Status:Closed by GUILLERMO MARTIN on 01/29/23 [facility] CNOVon 11-21-2022 CNOV Office Visit (UCWSTR ) CESAR NOWAK ([id number]) 1985 F Date Time Provider Department 11/21/22 12:30 PM ARIANE ABARCA [facility] During your visit today, we recorded the following information about you: Temperature Pulse Respiration Blood pressure 98.5 degrees 57/minute 18/minute 122/80 Weight 57.1 kg Ariane Abarca APRN.SERVICE PLANNER 11/21/2022 1:13 PM Signed Subjective HPI HPI Cesar Katzabdirahman is a 37 year old female who presents today for CC of cough, rattle in chest. This started 1 week ago. Has tried otc medication for relief. Symptoms are worsened by nothing. Nonsmoker. Denies asthma. .Patient presents with: Cough: Cough x 1 week History reviewed. No pertinent past medical history. No past surgical history on file. ALLERGIES Amoxicillin and Bactrim [Sulfamethoxazole] MEDICATIONS Norgestimate-Ethinyl Estradiol (TRI-SPRINTEC) 0.18/0.215/0.25 mg-35 mcg (28) Tab Take by mouth. (Patient not taking: Reported on 04/09/2021 ) hyoscyamine sublingual 0.125 mg Subl Dissolve 0.125 mg under the tongue before meals and at bedtime. (Patient not taking: Reported on 04/09/2021 ) AMITRIPTYLINE HCL (ELAVIL ORAL) Take by mouth. (Patient not taking: Reported on 04/09/2021 ) No family history on file. Social History Tobacco Use Smoking status: Never Smokeless tobacco: Never ROS Objective Blood pressure 122/80, pulse (!) 57, temperature 36.9 ?C (98.5 ?F), temperature source Tympanic, resp. rate 18, weight 57.1 kg (125 lb 12.8 oz), last menstrual period 07/11/2012, SpO2 100 %. Physical Exam Constitutional: General: She is not in acute distress. Appearance: She is not toxic-appearing or diaphoretic. HENT: Head: Normocephalic and atraumatic. Nose: Nose normal. Eyes: General: Lids are normal. No scleral icterus. Right eye: No discharge. Left eye: No discharge. Conjunctiva/sclera: Conjunctivae normal. Pupils: Pupils are equal, round, and reactive to light. Neck: Trachea: Trachea normal. Cardiovascular: Rate and Rhythm: Normal rate and regular rhythm. Heart sounds: Normal heart sounds. Pulmonary: Effort: Pulmonary effort is normal. Breath sounds: Rhonchi (scattered bilat) present. No decreased breath sounds, wheezing or rales. Musculoskeletal: Cervical back: Normal range of motion and neck supple. Lymphadenopathy: Cervical: No cervical adenopathy. Right cervical: No superficial cervical adenopathy. Left cervical: No superficial cervical adenopathy. Skin: Findings: No rash. Neurological: Mental Status: She is alert and oriented to person, place, and time. ASSESSMENT/PLAN: 1. Viral bronchitis - ICD9: 466.0, ICD10: J20.8 (primary diagnosis) - Discussed supportive care - Limit exposure to smoke and other inhaled irritants - Discussed possible red flags and when to seek medical attention - Follow up in 3-5 days or sooner if no better or worse -If you experience chest pain/shortness of breath go to ER - PREDNISONE 20 MG TABLET - ALBUTEROL SULFATE HFA 90 MCG/ACTUATION AEROSOL INHALER 2. Rhonchi at both lung bases - ICD9: 786.7, ICD10: R09.89 - XR CHEST 2V FRONTAL/LAT IMPRESSION: No acute radiographic abnormality. Dictated by : MD Ariane DEL VALLE, NUBIA.SERVICE PLANNER Allergies As of Date: 11/21/2022 Noted Allergy Reaction AMOXICILLIN 08/01/2012 2 - Rash BACTRIM (SULFAMETHOXAZOLE) 03/07/2013 14 - Other: See Comments Comments: fever,joint pain Date Reviewed: 11/21/2022 Reviewed by: Ariane Abarca APRN.SERVICE PLANNER - Fully Assessed Reason for Visit: Cough [28] Cmt: Cough x 1 week Primary Visit Diagnosis:Viral bronchitis [J20.8] Other Visit Diagnosis:Rhonchi at both lung bases [R09.89] Order(s):XR CHEST 2V FRONTAL/LAT [[id number]] Order #: [id number]. #:[id number] predniSONE (DELTASONE) 20 mg tabletTake 2 tablets by mouth once daily for 5 days.Disp: 10 tabletRfl: 0 albuterol HFA (PROAIR HFA) 90 mcg/actuation inhalerInhale 2 Puffs as instructed every 4 hours as needed.Disp: 1 EachRfl: 0 Prescriptions as of 11/21/2022 - predniSONE (DELTASONE) 20 mg tablet Take 2 tablets by mouth once daily for 5 days. - albuterol HFA (PROAIR HFA) 90 mcg/actuation inhaler Inhale 2 Puffs as instructed every 4 hours as needed. - Norgestimate-Ethinyl Estradiol (TRI-SPRINTEC) 0.18/0.215/0.25 mg-35 mcg (28) Tab Take by mouth. - hyoscyamine sublingual 0.125 mg Subl Dissolve 0.125 mg under the tongue before meals and at bedtime. - AMITRIPTYLINE HCL (ELAVIL ORAL) Take by mouth. Problem List As Of Date: 11/21/2022 (None) Prescriptions ordered this encounter Disp Refills Start End PREDNISONE 20 MG TABLET 10 t* 0 11/21/2022 11/26/2022 Route: ORAL Sig: Take 2 tablets by mouth once daily for 5 days. ALBUTEROL SULFATE HFA 90 MCG/ACTUATI* 1 Ea* 0 11/21/2022 Cmt: Generic or brand: dispense inhaler preferred by patient/insurance unless CHRISTI fla (more content not included)... Normal [facility] XR CHEST 2V FRONTAL/LATon XR CHEST 2V FRONTAL/LAT * * *Final Repor t* * * DATE OF EXAM: Nov 21 2022 12:49PM WOX [id number] - XR CHEST 2V FRONTAL/LAT / PROCEDURE REASON: Rhonchi at both lung bases * * * * Physician Interpretation * * * * EXAMINATION: CHEST RADIOGRAPH (2 VIEW FRONTAL and LATERAL) CLINICAL HISTORY: Rhonchi at both lung bases MQ: XC2_6 EXAM DATE/TIME: 11/21/2022 12:49 PM COMPARISON: No relevant prior studies available. RESULT: Lines, tubes, and devices: None. Lungs and pleura: No consolidation. No lung mass. No pleural effusion. No pneumothorax. Cardiomediastinal silhouette: Normal cardiomediastinal silhouette. Bones and soft tissues: Unremarkable. IMPRESSION: No acute radiographic abnormality. Cloth Grader: [facility] Transcribe Date/Time: Nov 21 2022 12:57P Dictated by : SHANIQUA ZULUAGA MD This examination was interpreted and the report reviewed and electronically signed by: SHANIQUA ZULUAGA MD on Nov 21 2022 12:57PM EST [id number] Normal [facility] XR Chest PA and Lateralon IMPRESSION: No acute radiographic abnormality. Cloth Grader: [employer] Transcribe Date/Time: Nov 21 2022 12:57P Dictated by : SHANIQUA ZULUAGA MD This examination was interpreted and the report reviewed and electronically signed by: SHANIQUA ZULUAGA MD on Nov 21 2022 12:57PM EST DIVISION OF RADIOLOGY * * *Final Report* * * DATE OF EXAM: Nov 21 2022 12:49PM WOX 5291 - XR CHEST 2V FRONTAL/LAT / PROCEDURE REASON: Rhonchi at both lung bases * * * * Physician Interpretation * * * * EXAMINATION: CHEST RADIOGRAPH (2 VIEW FRONTAL & LATERAL) CLINICAL HISTORY: Rhonchi at both lung bases MQ: XC2_6 EXAM DATE/TIME: 11/21/2022 12:49 PM COMPARISON: No relevant prior studies available. RESULT: Lines, tubes, and devices: None. Lungs and pleura: No consolidation. No lung mass. No pleural effusion. No pneumothorax. Cardiomediastinal silhouette: Normal cardiomediastinal silhouette. Bones and soft tissues: Unremarkable. DIVISION OF RADIOLOGY [facility], [facility] * * *Final Report* * * DATE OF EXAM: Nov 21 2022 12:49PM WOX 5291 - XR CHEST 2V FRONTAL/LAT / PROCEDURE REASON: Rhonchi at both lung bases * * * * Physician Interpretation * * * * EXAMINATION: CHEST RADIOGRAPH (2 VIEW FRONTAL & LATERAL) CLINICAL HISTORY: Rhonchi at both lung bases MQ: XC2_6 EXAM DATE/TIME: 11/21/2022 12:49 PM COMPARISON: No relevant prior studies available. RESULT: Lines, tubes, and devices: None. Lungs and pleura: No consolidation. No lung mass. No pleural effusion. No pneumothorax. Cardiomediastinal silhouette: Normal cardiomediastinal silhouette. Bones and soft tissues: Unremarkable. IMPRESSION IMPRESSION: No acute radiographic abnormality. Cloth Grader: [facility] Transcribe Date/Time: Nov 21 2022 12:57P Dictated by : SHANIQUA ZULUAGA MD This examination was interpreted and the report reviewed and electronically signed by: SHANIQUA ZULUAGA MD on Nov 21 2022 12:57PM EST [facility] Radiology Study observation (narrative) [facility] XR Chest PA and LateralOrder ed By: [facility] Provider on 11-21-2022 [facility] Cervical or vagninal specime n microscopic examination by cytology stain (reported ason 02-09-2022 Cytology report Cyto stain Doc (Cvx/Vag) Comment [facility] Work Phone: Comment on above: The Pap smear is a s creening test designed to aid in thedetection of premalignant and malignant conditions of theuterine cervix. It is not a diagnostic procedure andshould not be used as the sole means of detecting cervicalcancer. Both false-positive and false-negative reports dooccur. Laboratory - Cytologyon 01-18 [place] Operator Cyto stain Nom (Cvx/Vag) [ID] Comment [facility] Work Phone: Comment on above: Lucy Magallanes, Cyto technologist (ASCP) Laboratory - Miscellaneous t estson 02-09-2022 Service comment (Unsp spec) [Interp] Comment [facility] Work Phone: Comment on above: This liquid based Th inPrep(R) pap test was screened withthe use of an image guided system. Service comment (Unsp spec) [Interp] . [facility] Work Phone: No Panel Informationon 02-09 Human Papillomavirus Screen Comment [facility] Work Phone: Comment on above: The HPV DNA reflex c riteria were not met with this specimenresult therefore, no HPV testing was performed.Performed at: [address] [id number] Director: Humera Murray MD, Phone: [phone] Pathology report final diagnosis Narrative Comment [facility] Work Phone: Comment on above: NEGATIVE FOR INTRAEP ITHELIAL LESION OR MALIGNANCY. CORONAVIRUS PCR [CCL]on 11-19 SEND TO IC? YES Normal [facility] Comment on above: Performed By: #### [id number] #### [facility],[address] [place] [address] COVID 19 Result BLISTER PACK OPERATOR Positive Abnormal [facility] Comment on above: Result Comment: Posi tive for COVID19 (SARS CoV2) by PCR.(*) This test was developed and its performance characteristics determined by [facility] [place]. This test has been authorized by FDA under an Emergency Use Authorization (EUA). This test has been validated in accordance with the FDA's Guidance Document Policy for Diagnostics Testing in Laboratories Certified to Perform High Complexity Testing under CLIA prior to Emergency use Authorization for Coronavirus Disease 2019 during the Public Health Emergency" issued on January 17, 2020. [facility] [address] [place] [address] Tay Woods III, M.D. [id number] Performed By: #### 2 [id number] #### [facility],[address] [place] [address] COVID 19 Source BLISTER PACK OPERATOR Nasopharyngeal Swab Normal [facility] Comment on above: Result Comment: You ected on 12/02 AT 2347: Previously reported as BLISTER PACK OPERATOR Performed By: #### 2 [id number] #### [facility],[address] [place] [address] Coronavirus 2019on 1 COVID 19 Result BLISTER PACK OPERATOR Abnormal Negative for COVID19 (SARS CoV2) by PCR. [facility] Comment on above: Result Comment: Posi tive for This test was developed and its performance characteristics determined by [facility]'s [facility] [place]. This test has been authorized by FDA under an Emergency Use Authorization (EUA). This test has been validated in accordance with the FDA's Guidance Document "Policy for Diagnostics Testing in Laboratories Certified to Perform High Complexity Testing under CLIA prior to Emergency use Authorization for Coronavirus Disease 2019 during the Public Health Emergency" issued on January 17, 2020. COVID19 (SARS This test was developed and its performance characteristics determined by [facility] [place]. This test has been authorized by FDA under an Emergency Use Authorization (EUA). This test has been validated in accordance with the FDA's Guidance Document "Policy for Diagnostics Testing in Laboratories Certified to Perform High Complexity Testing under CLIA prior to Emergency use Authorization for Coronavirus Disease 2019 during the Public Health Emergency" issued on January 17, 2020. CoV2) by This test was developed and its performance characteristics determined by [facility] [place]. This test has been authorized by FDA under an Emergency Use Authorization (EUA). This test has been validated in accordance with the FDA's Guidance Document "Policy for Diagnostics Testing in Laboratories Certified to Perform High Complexity Testing under CLIA prior to Emergency use Authorization for Coronavirus Disease 2019 during the Public Health Emergency" issued on January 17, 2020. PCR.(*) This test was developed and its performance characteristics determined by [facility] [place]. This test has been authorized by FDA under an Emergency Use Authorization (EUA). This test has been validated in accordance with the FDA's Guidance Document "Policy for Diagnostics Testing in Laboratories Certified to Perform High Complexity Testing under CLIA prior to Emergency use Authorization for Coronavirus Disease 2019 during the Public Health Emergency" issued on January 17, 2020. COVID 19 Source BLISTER PACK OPERATOR Normal [facility] Comment on above: Result Comment: Naso pharyngeal Corrected on 12/02 AT 2347: Previously reported as BLISTER PACK OPERATOR Swab Corrected on 12/02 AT 2347: Previously reported as BLISTER PACK OPERATOR OR Nursingon 09-08-2020 OR Nursing [facility] NA OR Nursing Record Summary Primary Physician: Yoana William MD Finalized Date/Time: 09/08/20 10:29:55 Pt. Name: CESAR NOWAK Enrike Faye./Sex: 1985 Female Med Rec #: [id number] Physician: Financial #: [id number] Pt. Type: A Room/Bed: / Admit/Disch: 09/07/20 04:56:00 - 09/07/20 12:39:00 Institution: [facility] NA OR Case Times Entry 1 Patient Times Patient In Room 09/07/20 06:29:00 Patient Out Room 09/07/20 09:02:00 Surgical Times Start Time 09/07/20 07:00:00 Stop Time 09/07/20 08:51:00 Last Modified By: Daniela MOHAN , Estefania Marquez 09/07/20 09:02:18 CO NA OR Case Attendees Entry 1 Entry 2 Entry 3 Case Attendee Nataliia DELGADO , Daniela MOHAN , Joslyn Roldan Role Performed Primary Surgeon key account representative [employer] Manager Time In 09/07/20 06:52:00 09/07/20 06:29:00 09/07/20 06:29:00 Time Out 09/07/20 09:02:00 09/07/20 09:02:00 09/07/20 09:02:00 Procedure Mammoplasty Mammoplasty Mammoplasty Augmentation(Bilatera l), Augmentation(Bilatera l), Augmentation(Bilatera l), Graft Fat(Bilateral) Graft Fat(Bilateral) Graft Fat(Bilateral) Attendee Comment Relief Reason Last Modified By: Kris RN , Raquel Ponce RN , Raquel Ponce RN , Raquel Chappell 09/08/20 10:23:25 09/08/20 10:23:25 09/08/20 10:23:25 Entry 4 Entry 5 Entry 6 Case Attendee Cory Leon DO, Attendee Vida Linn RN Role Performed Anesthesiologist Criminal Defense Lawyer [employer] Licensed Mental Health Professional Time In 09/07/20 06:29:00 09/07/20 06:29:00 09/07/20 06:29:00 Time Out 09/07/20 09:02:00 09/07/20 09:02:00 09/07/20 09:02:00 Procedure Mammoplasty Mammoplasty Mammoplasty Augmentation(Bilatera l), Augmentation(Bilatera l), Augmentation(Bilatera l), Graft Fat(Bilateral) Graft Fat(Bilateral) Graft Fat(Bilateral) Attendee Comment coverage Marina Stockton- private Relief Reason Last Modified By: Kris MOHAN , Raquel Ponce RN , Raquel Grullon RN 09/08/20 10:23:25 09/08/20 10:23:25 09/08/20 10:23:25 Entry 7 Case Attendee Wei La Role Performed Assistive Personnel Time In 09/07/20 06:29:00 Time Out 09/07/20 09:02:00 Procedure Mammoplasty Augmentation(Bilatera l), Graft Fat(Bilateral) Attendee Comment Relief Reason Last Modified By: Raquel Ponce RN 09/08/20 10:23:25 CO NA OR General Case Carton Forming Machine Adjuster 1 OR CO NA 10 ASA Class 2 Case Wound Class Clean Specialty Plastic Surgery Case Level Plastic Complex Diagnosis Preop Diagnosis Z41.1 Postop Same As Preop Yes Postop Diagnosis Z41.1 This is a down time No record. Last Modified By: Raquel Ponce RN 09/08/20 10:24:03 General Comments: 09/08/2020 1023 Case level changed from "Plastic Major" to reflect procedures performed. Raquel Ponce BSN, RN, nurse account auditor [place] NA OR Surgical Procedures Entry 1 Entry 2 Procedure Mammoplasty Augmentation Graft Fat Primary Procedure Yes No Modifiers Bilateral Bilateral Procedure Wound Clean Clean Class Primary Surgeon Nataliia DELGADO , Nataliia DELGADO , Yoana Carroll Surgical Service Plastic Surgery Plastic Surgery Anesthesia Type General General Procedure Performed Bilateral breast Liposuction of augmentation with bilateral lateral [place] textured implants thighs with fat grafting to bilateral breasts Start 09/07/20 07:00:00 09/07/20 07:00:00 Stop 10/20/20 08:51:00 09/07/20 08:51:00 Last Modified By: Estefania Suarez RN, RN, Deborah A 09/07/20 08:53:10 09/08/20 10:23:17 General Comments: 09/08/2020 1022 Deleted Liposuction Procedure and added Graft Fat based on the Operative Report. Raquel Ponce BSN, RN, nurse account auditor [facility] NA OR Catheters, Drains, and Tubes Entry 1 Entry 2 Device Type CO DRAIN ROUND SILICONE CO DRAIN ROUND SILICONE TOÑITO 15FR [id number] TOÑITO 15FR [id number] Present on Arrival? No No Location Left Breast Right Breast Inserted By Nataliia DELGADO , Nataliia DELGADO , Yoana Carroll Comments 15F drain with biopatch 15F drain with biopatch attached to 100mL attached to 100mL reservoir bulb. reservoir bulb. DC'd at End of Case? No No DC'd By Last Modified By: Estefania Suarez RN, RN, Molly I 09/07/20 08:12:17 09/07/20 08:12:17 CO NA OR Patient Positioning Entry 1 Abdomen Pre Soft Skin Condition Warm, Dry, Intact Procedure Before Body Position Supine Pressure Points Yes Assessed? Right Arm Position On armboard Left Arm Position On armboard Arm Secured Right, Left Positioning Device Foam, Pillows, Gel Pads Right Leg Position Flexed Left Leg Position Flexed Safety Strap Applied Yes Safety Strap Lower legs Location Positioned By Case, Attendee Other, Positioning Comment Patient positioned Estefania Suarez RN, I, supine on OR table with Reckley, Wei, gel pads, under body Hammann CAA , Joslyn edgar, pillow under knees, safety strap across shins, arms on foamed armboards, foam under heels. Procedure Mammoplasty Augmentation(Bilatera l), Graft Fat(Bilateral) Last Modified By: Raquel Ponce RN 09/08/20 10:23:28 CO NA OR Antithrombolytic Devices Entry 1 IPC Intermittent Left IPC Setting preset Pneumatic Compression IPC Size Knee Bariatric No SYED Hose Foot Pump Last Modified By: Estefania Suarez RN, I 09/07/20 07:17:45 General Comments: Blood pressure cuff on right leg CO NA OR Skin Prep Entry 1 Hair Removal Method None Skin Prep Prep Agents Chlorhexidine Gluconate Prep Site See comments 4% Prep by Estefania Suarez RN, I Procedure Mammoplasty Augmentation(Bilatera l), Graft Fat(Bilateral) Last Modified By: Raquel Ponce RN 09/08/20 10:23:28 General Comments: Chin to pubis including flanks, pubis to bilateral knees- medial to lateral. Bilateral arms circumfrentially CO NA OR Fire Risk Assessment Entry 1 Alcohol Based Prep n/a Solution Dry Time >3 Minutes or According to Manufactures Instructions. No Pooling Observed. (No Alcohol Prep used Select N/A) Fire Risk Factors Yes = 1, No or N/A = 0 Procedure Yes Open O2 Source No Site/Incision Above (Face Mask/Nasal Xyphoid Process Cannula) Ignition source Yes Fire Risk Total 2 (Cautery, Laser, Score Fiberoptic Light Source) Last Modified By: Estefania Suarez RN, I 09/07/20 07:19:29 Post-Care Text: Standard Fire Safety precautions - Score 1 or 2 Prep drying time - minimum three minutes Protected heat source (i.e bovie funes) Standard draping procedure HIGH RISK FIRE PRACTICES - SCORE 3 *RN verbalizes to the team the presence of high-risk score and verifies the fire triangle *Write High Risk on the white board *Verbally confirm lowest effective setting on the heat source *Minimize 02 entrapment by proper draping of the patient *Encourage use of wet sponges *Available basin with sterile water and bulb syringe for suppression *Anesthesia Awareness and communication of oxygen flows/concentration *Allow for dispersion of 02 at least 1 minute before and during electrosurgical and laser use and communicate to surgeon *Use lowest tolerable concentration of 02 (less than 30% when able) CO NA OR Surgical Safety Checklist Entry 1 TIme Out Verified 09/07/20 06:57:00 Procedure Mammoplasty At: Augmentation(Bilatera l), Graft Fat(Bilateral) Pre-Induction Patient confirms Before Introduction of Additional identity, site and Incision/Suspend surgical team and/or Verification procedure, Anesthesia all Activities new members, Entire safety check complete, (Before surgical team verbally pulse ox on, Confirm Incision/Start of confirm patient, site, patient allergies, Procedure) procedure, Surgeon Patient aspiration risk reviews: what are the was assessed and critical or unexpected equipment/assistance steps, operative available if necessary, duration, and Blood loss assessment; anticipated blood if risk of >500 mL loss?, Anesthesia blood loss (7mL/kg in reviews: are there any children) adequate IV patient-specific access, fluids and/or concerns?, Nursing team blood products planned, reviews: has sterility Implants, devices, been confirmed and are special equipment there any available and patient-specific functioning concerns?, Antibiotic infused/ing and redosing discussed if applicable, Relevant images and results properly labeled and correctly displayed if applicable Fire Risk Yes Assessment Completed Last Modified By: Raquel Ponce RN 09/08/20 10:23:26 CO NA OR Cautery Entry 1 Cautery and Settings Type Monopolar Unit ID Number 8 Coagulation Setting 40 Cut Setting 40 Grounding Pad Buttock left Applied By Estefania Suarez RN, I Location Last Modified By: Estefania Suarez RN, I 09/07/20 07:21:05 General Comments: Grounding pad site clear pre and post procedure CO NA OR Medication Entry 1 Entry 2 Entry 3 Times Med Administered Medication CO BUPIVACAINE 0.5% CO LIDOCAINE 1% W/EPI CO SALINE 0 9% PF 20ML 150MG/30ML VIAL 1:100 000 20ML VIAL INJECTION Medication Dosage 30 mL 20 ml 50 ml Route of Local Local Local Administration Meds Administered By Nataliia DELGADO , Nataliia DELGADO , Nataliia DELGADO , Yoana Carroll Medication Comment Last Modified By: Daniela MOHAN , Estefania Suarez RN , Estefania Guy RN, I 09/07/20 07:21:49 09/07/20 07:21:49 09/07/20 07:21:49 CO NA OR Irrigation Entry 1 Entry 2 Entry 3 Irrigant 0.9% Saline Lactated Ringers Lactated Ringers Irrigant Volume 1000 mL 1000 mL 1000 mL Medication and Gentamicin 160mg 600 mg Clindamycin Sodium Bicarbonate 5 Dosage meq, Lidocaine 50 ml, Epinephrine 1 ml Last Modified By: Estefania Suarez RN, RN , Estefania Guy RN, I 09/07/20 07:23:58 09/07/20 07:23:58 09/07/20 07:23:58 CO NA OR Implants Entry 1 Entry 2 Procedure Mammoplasty Mammoplasty Augmentation(Bilatera l), Augmentation(Bilatera l), Graft Fat(Bilateral) Graft Fat(Bilateral) Implant/Explant Implant Implant Wasted Reason Provided by Surgeon Implant Identification Description FREE TEXT: [phone] FREE TEXT: [phone] MENTOR MEMORY SHAPE MENTOR MEMORY SHAPE MEDIUM HEIGHT, HIGH MEDIUM HEIGHT, HIGH PROFILE BREAST IMPLANT PROFILE BREAST IMPLANT 345CC 345CC Chief Engineer'S Helper FABIAN PERALTA Catalog Number [id number] Lot Number [id number] Serial Number [id number] Implant Site RIGHT BREAST LEFT BREAST Quantity 1 1 Expiration Date 01/07/22 01/07/22 No Expiration Date No No Unique Device Indent (JAYSHREE) Human Readable Machine Readable Manufactured Date Tissue Tissue Implanted No No Material Used to N/A N/A Prepare/Process Tissue Processed By: Last Modified By: Kris MOHAN , Raquel Grullon RN 09/08/20 10:23:29 09/08/20 10:23:29 General Comments: 09/08/2020 1028 [place] Device Tracking Form given to Funmi Yoder. Raquel Ponce BSN, RN, nurse account auditor CO NA OR Counts Entry 1 Entry 2 Instrument Count N/A N/A Surgeon Notified of Yes Count Sponge Count Initial Count Done 1st count correct X-ray Taken No No Sharps/Miscellaneous Initial Count Done 1st count correct Count RN Performing Count Estefania Suarez RN, RN, Molly I Count Performed with Vida Ramirez RN, RN, Brandi L Comment Procedure Mammoplasty Mammoplasty Augmentation(Bilatera l), Augmentation(Bilatera l), Graft Fat(Bilateral) Graft Fat(Bilateral) Last Modified By: Kris MOHAN , Raquel Grullon RN 09/08/20 10:23:27 09/08/20 10:23:27 CO NA OR Dressing/Packing Entry 1 Entry 2 Dressing Dressing/Packing ADHESIVE SKIN DERMABOND Type PRINEO 1 60CM DISPENSR - 1 8ML APPL [id number] Dressing/Packing Bilateral Breast Site Tape Dressing/Packing Prineo Dermabond, BRAD WRAPS, BILATERAL Comment ABDs, kerlix roll, bra LEGS fitted to patient Last Modified By: Estefania Suarez RN, RN, Molly I 09/07/20 08:46:27 09/07/20 08:46:27 CO NA OR Temperature Regulation Entry 1 Device CO UNIT EDGAR STOREY Unit ID 26 Site Underbody Setting PER ANESTHESIA Warm blankets, Warm fluids, Increased Room Temp Last Modified By: Estefania Suarez RN, I 09/07/20 07:24:25 General Comments: Temperature monitored and maintained per anesthesia CO NA OR Final Count Entry 1 Sponges Correct Yes Sharps/Miscellaneous Yes Correct Instruments Correct n/a Count Performed with Vida Ramirez RN, RN Performing Count Estefania Suarez RN, I Surgeon Notified of Yes Count X-ray Taken No Procedure Mammoplasty Augmentation(Bilatera l), Graft Fat(Bilateral) Last Modified By: Raquel Ponce RN 09/08/20 10:23:27 CO NA OR PNDS Risk of Impaired Skin Entry 1 Interventions/Activi Identifies physical OUTCOME STATEMENTS: The patient is free ties: alterations that may from visible signs and affect symptoms of injury procedure-specific related to positioning, positioning., Positions immobilization, the patient., pressure and/or Implements protective shearing forces. measures to prevent skin or tissue injury due to thermal, chemical, or mechanical sources., Uses supplies and equipment within safe parameters., Evaluates for signs and symptoms of injury as a result of positioning, immobilization, pressure and/or shearing forces. Last Modified By: Estefania Suarez RN, I 09/07/20 07:24:31 CO NA OR PNDS Risk of Altered Body Temp Entry 1 Interventions/Activi Monitors body OUTCOME STATEMENT: The patient is at or ties: temperature., returning to Implements normothermia at the thermoregulation conclusion of the measures., Evaluates operative period. response to thermoregulation. Last Modified By: Estefania Suarez RN, I 09/07/20 07:24:34 CO NA OR PNDS Risk of Infection Entry 1 INTERVENTIONS/ACTIVI Implements aseptic OUTCOME STATEMENT: The patient is free of TIES: technique., Classifies signs and symptoms of surgical wound., infection at the Assesses susceptibility conclusion of the for infection., operative period. Performs skin preparations., Protects from cross-contamination., Monitors for signs and symptoms of infection., Minimizes the length of invasive procedure planning care., Administers prescribed prophylactic treatments., Initiates traffic control., Administers care to invasive device sites., Administers care to wound sites. Last Modified By: Estefania Suarez RN, I 09/07/20 07:24:37 CO NA OR Patient Debriefing Entry 1 Patient Debriefing Verify name of Skin Assessment Warm, Dry, Intact procedure(s) performed After including site/side, Sponge and needle counts are correct, N/A review specimens and how each is labeled, Discuss equipment, instrument problems reported and case improvements, Review hinojosa concerns for further patient management Last Modified By: Estefania Suarez RN, I 09/07/20 07:31:25 CO NA OR PNDS Risk of Injury Entry 1 Interventions/Activi Implements protective OUTCOME STATEMENT: The patient is free ties: measures to prevent from visible signs and injury due to symptoms of injury electrical sources., related to electrical, Implements protective mechanical, radiation measures to prevent or laser. injury due to mechanical sources, Implements latex allergy precautions as needed, Records devices implanted during invasive procedure., Performs required counts., Evaluates for signs and symptoms of laser, electrical, mechanical and radiation injury. Last Modified By: Estefania Suarez RN, I 09/07/20 07:24:48 CO NA OR Transport from OR Entry 1 Patient Status Awakening Post-op Destination PACU Phase I Via Stretcher Last Modified By: Estefania Saurez RN, I 09/07/20 07:31:31 Case Comments Finalized By: Raquel Ponce RN Document Signatures Signed By: Estefania Suarez RN, I 09/07/20 09:02 Raquel Ponce RN 09/08/20 10:24 Raquel Ponce RN 09/08/20 10:29 Normal [facility] PACU I Nursingon 09-08-2020 PACU I Nursing CO NA PACU I Nursing Record Summary Primary Physician: Nataliia DELGADO , Yoana Carroll Finalized Date/Time: 09/08/20 10:20:41 Pt. Name: CESAR NOWAK/Sex: 1985 Female Med Rec #: [id number] Physician: Financial #: [id number] Pt. Type: A Room/Bed: / Admit/Disch: 09/07/20 04:56:00 - 09/07/20 12:39:00 Institution: CO NA OR Main PACU I Case Times Entry 1 In PACU I 09/07/20 09:03:00 Ready for PACU I 09/07/20 09:40:00 Discharge Discharge from PACU 09/07/20 09:40:00 PACU I Discharge NA I Delay Reason Last Modified By: Aliza Kramer RN 09/07/20 12:41:07 CO NA OR Main PACU I Case Attendees Entry 1 Case Attendee Saundra Marie RN Role Performed RN Last Modified By: Saundra Marei RN 09/07/20 09:49:05 Finalized By: Raquel Ponce RN Document Signatures Signed By: Saundra Marie RN 09/07/20 09:49 Saundra Marie RN 09/07/20 09:49 Raquel Ponce RN 09/08/20 10:20 Normal [facility] Post PACU Nursingon 09-07-20 20 Post PACU Nursing CO NA PACU II Yuri carroll Record Summary Primary Physician: Yoana William MD Finalized Date/Time: 09/07/20 12:33:12 Pt. Name: CESAR NOWAK/Sex: 1985 Female Med Rec #: [id number] Physician: Financial #: [id number] Pt. Type: A Room/Bed: / Admit/Disch: 09/07/20 04:56:00 - Institution: CO NA OR PACU II Case Times Entry 1 In PACU II 09/07/20 09:41:00 Ready for PACU II 09/07/20 12:40:00 Discharge Discharge from PACU 09/07/20 12:40:00 PACU II Discharge NA II Delay Reason Last Modified By: Melodie Brandt RN 09/07/20 12:33:10 CO NA OR PACU II Case Attendees Entry 1 Case Attendee Melodie Brandt RN Role Performed RN Last Modified By: Melodie Brandt RN 09/07/20 09:47:48 Finalized By: Melodie Brandt RN Document Signatures Signed By: Melodie Brandt RN 09/07/20 12:33 Normal [facility] PreOp Nursingon 09-07-2020 PreOp Nursing CO NA PreOp Nursing Record Summary Primary Physician: Yoana William MD Finalized Date/Time: 09/07/20 06:30:25 Pt. Name: CESAR NOWAK Enrike /Sex: 1985 Female Med Rec #: [id number] Physician: Financial #: [id number] Pt. Type: A Room/Bed: / Admit/Disch: 09/07/20 04:56:00 - Institution: CO NA OR PreOp Case Times Entry 1 PreOp Case Times In Room Time 09/07/20 05:06:00 Out Room Time 09/07/20 06:28:00 Last Modified By: Estefania Suarez RN, I 09/07/20 06:30:23 CO NA OR PreOp Case Attendees Entry 1 Case Attendee Umm Ag RN Role Performed RN Last Modified By: Umm Ag RN 09/07/20 05:30:56 Finalized By: Estefania Suarez RN, I Document Signatures Signed By: Estefania Suarez RN, I 09/07/20 06:30 Normal [facility] Test Urineon 09-07 HCG ( test) Ql (U) Negative Normal [facility] Coronavirus (COVID-19/SARS-C oV-2) [facility] 09-04-2020 Device Identifier Hologic [place] Aptima Normal [facility] Comment on above: Performed By: #### 9 [id number] #### [facility] [address] [place] [id number] 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 [facility] Comment on above: Performed By: #### 9 [id number] #### [facility] [address] [place] [address] First test N Normal [facility] Comment on above: Performed By: #### 9 [id number] #### [facility] [address] [place] [id number] ICU N [facility] Comment on above: Performed By: #### 9 [id number] #### [facility] [address] [place] [id number] Illness or injury onset date and time N [facility] Comment on above: Performed By: #### 9 [id number] #### [facility] [address] [place] [address] Patient was hospitalized because of this condition N [facility] Comment on above: Performed By: #### 9 [id number] #### [facility] [address] [place], [place] [id number] status N [facility] Comment on above: Performed By: #### 9 [id number] #### [facility] [address] [place] [address] Resides in congregate care setting N [facility] Comment on above: Performed By: #### 9 [id number] #### [facility] [address] [place], [place] [id number] SARS-CoV-2 NOTDET [facility] Comment on above: Result Comment: This test was performed via the Aptima SARS-CoV-2 Assay (Standardized Safety), a Nucleic Acid Amplification Test (NAAT), and has been authorized by the FDA under an Emergency Use Authorization (EUA). The assay is validated for nasopharyngeal (BLISTER PACK OPERATOR), nasal, and oropharyngeal (OP) swab specimens. The Limit of Detection is 600 NDU/mL (NAAT Detectable Units/mL) which is comparable to other nucleic acid amplification tests (rt-PCR,NAAT) currently being used to test for SARS-CoV-2. Detection of SARS-CoV-2 may be affected by the sample collection, transport methods and patient factors (e.g., presence of symptoms, and/or stage of infection); therefore a negative result does not rule out the possibility of infection. For updated information, refer to the Center for Disease Control website: www.cdc.gov/coronavirus. Performed By: #### 9 4532-9x5 #### [facility] [address] [place] [address] Symptomatic as defined by CDC N Normal [facility] Comment on above: Performed By: #### 9 [id number] #### [facility] [address] [place] [id number] Vital Signs Date Time Vital Sign Value Performing Clinician Facility 03-26-2025 09:28-0400 Body height 172.72 cm Av Kim BLISTER PACK OPERATOR-C Work Phone: [facility] 03-26-2025 09:28-0400 Body mass index (BMI) [Ratio] 19.5 kg/m2 Av Kim BLISTER PACK OPERATOR-C Work Phone: [facility] 03-26-2025 09:28-0400 Body weight 58.28 kg Av Kim BLISTER PACK OPERATOR-C Work Phone: [facility] 03-26-2025 09:28-0400 Diastolic blood pressure 85 mm[Hg] Av Kim BLISTER PACK OPERATOR-C Work Phone: [facility] 03-26-2025 09:28-0400 Systolic blood pressure 120 mm[Hg] Av Kim BLISTER PACK OPERATOR-C Work Phone: [facility] 01-01-2024 14:49-0500 Body height 172.[address] Mandi Snider Work Phone: [facility] 01-01-2024 14:38-0500 Body mass index (BMI) [Ratio] 19.5 kg/m2 Dr. Mandi Snider Work Phone: [facility] 01-01-2024 14:38-0500 Body weight 58.[address] Mandi Snider Work Phone: [facility] 01-01-2024 14:38-0500 Diastolic blood pressure 72 mm[Hg] Dr. Mandi Sinder Work Phone: [facility] 01-01-2024 14:38-0500 Systolic blood pressure 118 mm[Hg] Dr. Mandi Snider Work Phone: [facility] 11-21-2022 12:12-0500 Body temperature 98.49 [degF] Ariane Abarca PARA PROFESSIONAL.SERVICE PLANNER Work Phone: [facility] 11-21-2022 12:12-0500 Body weight 57.06 kg Ariane Abarca PARA PROFESSIONAL.SERVICE PLANNER Work Phone: [facility] 11-21-2022 12:12-0500 Diastolic blood pressure 80 mm[Hg] Ariane Abarca PARA PROFESSIONAL.SERVICE PLANNER Work Phone: [facility] 11-21-2022 12:12-0500 Heart rate 57 /min Ariane Abarca PARA PROFESSIONAL.SERVICE PLANNER Work Phone: [facility] 11-21-2022 12:12-0500 Respiratory rate 18 /min Ariane Abarca PARA PROFESSIONAL.SERVICE PLANNER Work Phone: [facility] 11-21-2022 12:12-0500 SaO2% (BldA) [Mass fraction] 100 % Ariane Abarca PARA PROFESSIONAL.SERVICE PLANNER Work Phone: [facility] 11-21-2022 12:12-0500 Systolic blood pressure 122 mm[Hg] Ariane Abarca PARA PROFESSIONAL.SERVICE PLANNER Work Phone: [facility] 06-14-2022 10:10-0400 Body height 172.[address] Mandi Snider Work Phone: [facility] Work Phone: 06-14-2022 10:10-0400 Body mass index (BMI) [Ratio] 18.8 kg/m2 Dr. Mandi Snider Work Phone: [facility] Work Phone: 06-14-2022 10:10-0400 Body weight 56.[address] Mandi Snider Work Phone: [facility] Work Phone: 06-14-2022 10:10-0400 Diastolic blood pressure 66 mm[Hg] Dr. Mandi Snider Work Phone: [facility] Work Phone: 06-14-2022 10:10-0400 Systolic blood pressure 110 mm[Hg] Dr. Mandi Snider Work Phone: [facility] Work Phone: 05-04-2022 11:05-0400 Body mass index (BMI) [Ratio] 18 kg/m2 Dr. Mandi Snider Work Phone: [facility] Work Phone: 05-04-2022 11:05-0400 Body temperature 97.8 [degF] Dr. Mandi Snider Work Phone: [facility] Work Phone: 05-04-2022 11:05-0400 Body weight 53.[address] Mandi Snider Work Phone: [facility] Work Phone: 05-04-2022 11:05-0400 Diastolic blood pressure 62 mm[Hg] Dr. Mandi Snider Work Phone: [facility] Work Phone: 05-04-2022 11:05-0400 Heart rate 66 /min Dr. Mandi Snider Work Phone: [facility] Work Phone: 05-04-2022 11:05-0400 Respiratory rate 16 /min Dr. Mandi Snider Work Phone: [facility] Work Phone: 05-04-2022 11:05-0400 SaO2% (BldA) [Mass fraction] 97 % Dr. Mandi Snider Work Phone: [facility] Work Phone: 05-04-2022 11:05-0400 Systolic blood pressure 110 mm[Hg] Dr. Mandi Snider Work Phone: [facility] Work Phone: Encounters Encounter Date Encounter Type Care Provider Facility Start: 04-08-2025 End: 04-08-2025 ambulatory Av Judy VSC Facility:[facility] Start: 03-26-2025 End: 03-26-2025 ambulatory Av Judy BLISTER PACK OPERATOR-C Work Phone: [facility] Work Phone: Start: 03-26-2025 End: 03-26-2025 Patient encounter procedure Lucille Li CNM -Laboratory, Specimen Work Phone: Start: 03-26-2025 Encounter for gynecological examination (general) (routine) without abnormal findings Lucille Li [facility] Start: 03-26-2025 End: 03-26-2025 Patient encounter procedure Lucille Li CNM -[facility] Work Phone: Start: 03-26-2025 End: 03-26-2025 Patient encounter status Lucille Li CNM [facility] Start: 03-26-2025 End: 03-26-2025 ambulatory Av Kim VSC Facility:[facility] Start: 03-26-2025 End: 03-26-2025 ambulatory Lucille Li Facility:[facility] Start: 02-18-2025 ambulatory Zebulun Beam VSC Facili ty:[facility] Start: 01-29-2025 Registered Referred Nadeembubelia Beam BLISTER PACK OPERATOR- C -Cardiovascular Services Work Phone: Start: 01-29-2025 ambulatory Zebulun Beam VSC Facili ty:[facility] Start: 01-29-2025 Non-patient / Non-visit Dr. Lashonda juarez MD -[facility] Work Phone: Start: 01-19-2025 End: 01-19-2025 ambulatory Av Kim BLISTER PACK OPERATOR-C Work Phone: [facility] Work Phone: Start: 01-19-2025 End: 01-19-2025 Patient encounter procedure Linda Vargas NP-C -[facility] Start: 01-19-2025 End: 01-19-2025 ambulatory Zebuluyannick Beam VSC Facility:[facility] Start: 02-27-2024 End: 02-27-[address] Mandi Snider Work Phone: [facility] Work Phone: Start: 02-27-2024 End: 02-27-[address] Mandi Snider Work Phone: [facility] Ultrasound Work Phone: Start: 02-22-2024 End: 02-22-[address] Mandi Snider Work Phone: [facility] Work Phone: Start: 02-22-2024 End: 02-22-[address] Mandi Snider Work Phone: [facility]-Outpatient Breast Imaging Work Phone: Start: 01-24-[address] Mandi Snider Work Phone: [facility] Work Phone: Start: 01-01-2024 End: 01-01-[address] Mandi Snider Work Phone: [facility] Work Phone: Start: 01-01-2024 End: 01-01-[address] Mandi Snider Work Phone: [facility] Work Phone: Start: 09-22-2023 End: 09-23-2023 ambulatory [facility] Facility:[facility] Start: 01-29-2023 End: 01-29-2023 ambulatory [facility] Facility:[facility] Start: 01-29-2023 End: 01-29-2023 Patient encounter procedure Nurse [facility] [place] Comment on above: Family history of st reptococcal pharyngitis (Primary Dx); Recurrent streptococcal tonsillitis Start: 11-21-2022 End: 11-21-2022 ambulatory [facility] Facility:[facility] Start: 11-21-2022 End: 11-21-2022 Subsequent hospital visit by physician L[facility] Mirela Work Phone: Radiology Comment on above: Rhonchi at both lung bases [R09.89] Start: 11-21-2022 End: 11-21-2022 Patient encounter procedure Ariane King SAIGE Work Phone: [facility] Comment on above: Viral bronchitis (Pr imary Dx); Rhonchi at both lung bases Start: 06-14-2022 End: 06-14-[address] Mandi Snider Work Phone: [facility] Start: 06-14-2022 End: 06-14-[address] Mandi Snider Work Phone: [facility] Start: 05-04-2022 End: 05-04-[address] Mandi Snider Work Phone: [facility] Start: 02-09-2022 End: 02-09-[address] 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 Mandi Snider Work Phone: [facility] Start: 12-01-2020 End: 12-01-2020 Patient encounter procedure ASHISH AGUIRRE [facility] Procedures Date Procedure Procedure Detail Performing Clinician Start: 03-26-2025 Gram stain microscopy Dorothy Kim BLISTER PACK OPERATORGenovevaC Work Phone: Start: 03-26-2025 End: 03-26-2025 Source specific culture Av Kim BLISTER PACK OPERATOR-C Work Phone: Start: 02-27-[address] Mandi Snider Work Phone: Start: 02-22-2024 Screening mammography Eliezer Snider Work Phone: Start: 11-21-2022 Radiologic exam ches t 2 views Ariane Abarca APRNGeethaSERVICE PLANNER Work Phone: Start: 06-14-2022 Bilateral mammography Eliezer Snider Work Phone: Start: 06-14-[address] Mandi Snider Work Phone: Plan of Treatment Date Care Activity Detail Author Start: 04-08-2025 MG Breast - bilatera l Screening [facility] Start: 07-20-2024 Covid-19 Vaccine ( season) Covid-19 Vaccine ( season) [facility] Start: 07-20-2024 Influenza vaccination Influenza Vacc ine (#1) [facility] Start: 11-19-2022 DEPRESSION ASSESSMENT DEPRESSION ASS ESSMENT [facility] Start: 07-20-2022 Influenza vaccination INFLUENZA (#1) [facility] Start: 02-16-2021 COVID-19 VACCINE (3 - Booster for Moderna series) COVID-19 VACCINE (3 - Booster for Moderna series) [facility] Start: 2015 HPV TESTING HPV TESTING [facility] Start: 2006 PAP TESTING PAP TESTING [facility] Start: 2006 Screening for malign ant neoplasm of cervix Cervical Cancer Screening [facility] Start: 2004 Hepatitis B Vaccine (1 of 3 - 19+ 3-dose series) Hepatitis B Vaccine (1 of 3 - 19+ 3-dose series) [facility] Start: 2004 Urine microalbumin profile [facility] Start: 2003 Anxiety Screening Anxiety Screening [facility] Start: 2003 Depression Screening Depression Scre ening [facility] Start: 2003 HEPATITIS C SCREENING HEPATITIS C [facility] Start: 2003 Hepatitis C screening Hepatitis C [facility] Start: 2003 HIV SCREENING HIV SCREENING [facility] Start: 2003 HIV screening HIV Screening [facility] Start: 1985 HEPATITIS B (1 of 3 - 3-dose series) HEPATITIS B (1 of 3 - 3-dose series) [facility] MG Breast - bilatera l Screening [facility] STREP A MOLECULAR (POC) STREP A MOLECULAR (POC) Microbiology Routine Family history of streptococcal pharyngitis Recurrent streptococcal tonsillitis Ordered: 01/29/2023 Work Phone: Comment on above: Ordered: 01/29/2023 Immunizations Immunization Date Immunization Notes Care Provider Fa cility 09-22-2023 influenza virus vaccine, unspecified formulation Xr [place] Work Phone: [facility] 08-27-2014 influenza, injectabl e, quadrivalent, preservative free Dr. Mandi Snider Work Phone: [facility] 08-27-2014 influenza, seasonal, injectable Dr. Mandi Snider Work Phone: [facility] Work Phone: Payers Date Payer Category Payer Self-pay [id number] 2020 Unknown [id number] 2020 Unknown [id number] 2016 Unknown [id number] 1985 Unknown [id number] Unknown [id number] [id number] Unknown [id number] [id number] [id number] Unknown [id number] 2.16.8 [id number] Unknown [id number] 2.16.8 [id number] Unknown [id number] 2.16.8 [id number] Unknown [id number] 2.16.8 [id number] Unknown [id number] [id number] [id number] Social History Date Type Detail Facility Start: 11-04-2021 End: 01-01-2024 Tobacco smoking status ARIS Unknown if ever smoked [facility] Start: 1985 Sex Assigned At Female W [facility] Start: 03-07-2013 End: 01-01-2024 Tobacco smoking status NHIS Never smoked tobacco [facility] Work Phone: Start: 03-07-2013 Tobacco use and exposure Smokeless tobacco non-user [facility] Work Phone: Start: 11-21-2022 Alcohol intake Not Asked [facility] Start: 1985 Sex Assigned At Not on file C [facility] Start: 04-09-2021 End: 11-21-2022 History of Social function [facility] Start: 04-09-2021 End: 11-21-2022 Tobacco use panel [facility] National Score (1-100), lower number is lower risk Not on file [facility] Start: 01-29-2025 Sex Female (finding[facility] Clinical Notes 02-09-2022 to 03-26-2025 Note Date & Type Note Facility 03-26-2025 Evaluation note Diagnosis Onset Date Resolution Breast mass, right acute March 82024 9:24am Vaginal discharge acute March 9:24am Encounter for routine gynecological examination noneactive March 26, 2025 9: 24am [facility] Work Phone: [phone] NotePap Smear Specimen AdequacyFebruary 2023 4:59pmComment.Satisfactory for evaluation. Endocervical and/or squamous metaplasticcells (endocervical component)are present.[facility] INTER[facility]ACED A#[id number] [facility] Heights Medical CenterComment on above:Satisfactory for evaluation. Endocervical and/or squamous metaplasticcells (endocervical component)are present.01-01-2024 NotePap Smear Specimen AdequacyFebruary 2023 5:59pmComment.Satisfactory for evaluation. Endocervical and/or squamous metaplasticcells (endocervical component)are present.[facility] A#[id number] [facility] Medical CenterCommclaren [facility] [place] on above:Satisfactory for evaluation. Endocervical and/or squamous metaplasticcells (endocervical component)are present.01-01-2024 NotePap Smear Specimen AdequacyFebruary 2023 5:59pmComment.Satisfactory for evaluation. Endocervical and/or squamous metaplasticcells (endocervical component)are present.[facility] A#[id number] [facility] Heights Medical CenterComment on above:Satisfactory for evaluation. Endocervical and/or squamous metaplasticcells (endocervical component)are present.01-29-2023 NoteHNO ID: [id number] Author: Chase Floyd MD Service: ? Author Type: Physician Type: Progress Notes Filed: 01/29/2023 4:19 PM Note Text: Her son Shaji was seen in the office today. 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 Mother was tested for carrier state. Negative [facility] History of Present illness Narrative* Chase Floyd MD - 01/29/2023 2:15 PM EDT Her son Shaji was seen in the office today. 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 Mother was tested for carrier state. Negative Chase Floyd MD documented [facility]-2023 NoteHNO ID: [id number] Author: RT Justin(R) Service: Radiology Author Type: Technologist Type: Progress Notes Filed: 11/21/2022 12:50 PM Note Text: Radiology Service Progress Note PATIENT NAME: Cesar Nowak DATE OF SERVICE: November 21, 2022 TIME: 12:45 PM PATIENT IDENTITY VERIFICATION COMPLETED USING TWO (2) IDENTIFIERS: Name and Date of confirmed by patient verbally. FALL SCREENING: Has the patient had 2 falls in the last year or 1 fall with injury or currently using an Ambulatory Assistive Device (Walker, Cane, Wheelchair, Crutches, etc.)? No PATIENT GENDER DATA: Female. status: : No status: NO. PATIENT RELEVANT IMPLANT DATA REVIEWED: Yes RADIOLOGY DEPARTMENT: General X-ray: Exam(s) Completed: Chest X-Ray PERIPHERAL IV DATA: Not applicable SIGNED BY: RT Jutsin(R) November 21, 2022 12:45 [facility]01-03-2023 NoteHNO ID: [id number] Author: Ariane Abarca APRN.SERVICE PLANNER Service: ? Author Type: Nurse Practitioner Type: Progress Notes Filed: 11/21/2022 1:13 PM Note Text: Subjective HPI HPI Cesar Nowak is a 37 year old female who presents today for CC of cough, rattle in chest. This started 1 week ago. Has tried otc medication for relief. Symptoms are worsened by nothing. Nonsmoker. Denies asthma. .Patient presents with: Cough: Cough x 1 week History reviewed. No pertinent past medical history. No past surgical history on file. ALLERGIES Amoxicillin and Bactrim [Sulfamethoxazole] MEDICATIONS Norgestimate-Ethinyl Estradiol (TRI-SPRINTEC) 0.18/0.215/0.25 mg-35 mcg (28) Tab Take by mouth. (Patient not taking: Reported on 04/09/2021 ) hyoscyamine sublingual 0.125 mg Subl Dissolve 0.125 mg under the tongue before meals and at bedtime. (Patient not taking: Reported on 04/09/2021 ) AMITRIPTYLINE HCL (ELAVIL ORAL) Take by mouth. (Patient not taking: Reported on 04/09/2021 ) No family history on file. Social History Tobacco Use Smoking status: Never Smokeless tobacco: Never ROS Objective Blood pressure 122/80, pulse (!) 57, temperature 36.9 ?C (98.5 ?F), temperature source Tympanic, resp. rate 18, weight 57.1 kg (125 lb 12.8 oz), last menstrual period 07/11/2012, SpO2 100 %. Physical Exam Constitutional: General: She is not in acute distress. Appearance: She is not toxic-appearing or diaphoretic. HENT: Head: Normocephalic and atraumatic. Nose: Nose normal. Eyes: General: Lids are normal. No scleral icterus. Right eye: No discharge. Left eye: No discharge. Conjunctiva/sclera: Conjunctivae normal. Pupils: Pupils are equal, round, and reactive to light. Neck: Trachea: Trachea normal. Cardiovascular: Rate and Rhythm: Normal rate and regular rhythm. Heart sounds: Normal heart sounds. Pulmonary: Effort: Pulmonary effort is normal. Breath sounds: Rhonchi (scattered bilat) present. No decreased breath sounds, wheezing or rales. Musculoskeletal: Cervical back: Normal range of motion and neck supple. Lymphadenopathy: Cervical: No cervical adenopathy. Right cervical: No superficial cervical adenopathy. Left cervical: No superficial cervical adenopathy. Skin: Findings: No rash. Neurological: Mental Status: She is alert and oriented to person, place, and time. ASSESSMENT/PLAN: 1. Viral bronchitis - ICD9: 466.0, ICD10: J20.8 (primary diagnosis) - Discussed supportive care - Limit exposure to smoke and other inhaled irritants - Discussed possible red flags and when to seek medical attention - Follow up in 3-5 days or sooner if no better or worse -If you experience chest pain/shortness of breath go to ER - PREDNISONE 20 MG TABLET - ALBUTEROL SULFATE HFA 90 MCG/ACTUATION AEROSOL INHALER 2. Rhonchi at both lung bases - ICD9: 786.7, ICD10: R09.89 - XR CHEST 2V FRONTAL/LAT IMPRESSION: No acute radiographic abnormality. Dictated by : MD Ariane DEL VALLE APRN.[facility]01-03-2023 History of Present illness Narrative* Renetta Kay, RT(R) - 11/21/2022 12:50 PM EST Radiology Service Progress Note PATIENT NAME: Cesar Nowak DATE OF SERVICE: November 21, 2022 TIME: 12:45 PM PATIENT IDENTITY VERIFICATION COMPLETED USING TWO (2) IDENTIFIERS: Name and Date of confirmedby patient verbally. FALL SCREENING: Has the patient had 2 falls in the last year or 1 fall with injury or currently using an Ambulatory Assistive Device (Walker, Cane, Wheelchair, Crutches, etc.)? No PATIENT GENDER DATA: Female. status: : No status: NO. PATIENT RELEVANT IMPLANT DATA REVIEWED: Yes RADIOLOGY DEPARTMENT: General X-ray: Exam(s) Completed: Chest X-Ray PERIPHERAL IV DATA: Not applicable SIGNED BY: RT Justin(R) November 21, 2022 12:45 PM documented in this encounterT[facility]caraw[facility] Hospital01-03-2023 History of Present illness Narrative* Ariane Abarca APRN.SERVICE PLANNER - 11/21/2022 12:42 PM EST Subjective HPI HPI Cesar Nowak is a 37 year old female who presents today for CC of cough, rattle in chest. This started 1 week ago. Has tried otc medication for relief. Symptoms are worsened by nothing.Nonsmoker. Denies asthma. .Patient presents with: Cough: Cough x 1 week History reviewed. No pertinent past medical history. No past surgical history on file. ALLERGIES Amoxicillin and Bactrim [Sulfamethoxazole] MEDICATIONS Norgestimate-Ethinyl Estradiol (TRI-SPRINTEC) 0.18/0.215/0.25 mg-35 mcg (28) Tab Take by mouth. (Patient not taking: Reported on 04/09/2021 ) hyoscyamine sublingual 0.125 mg Subl Dissolve 0.125 mg under the tongue before meals and at bedtime. (Patient not taking: Reported on 04/09/2021 ) AMITRIPTYLINE HCL (ELAVIL ORAL) Take by mouth. (Patient not taking: Reported on 04/09/2021 ) No family history on file. Social History Tobacco Use Smoking status: Never Smokeless tobacco: Never ROS Objective Blood pressure 122/80, pulse (!) 57, temperature 36.9 C (98.5 F), temperature source Tympanic, resp. rate 18, weight 57.1 kg (125 lb 12.8 oz), last menstrual period 07/11/2012, SpO2 100 %. Physical Exam Constitutional: General: She is not in acute distress. Appearance: She is not toxic-appearing or diaphoretic. HENT: Head: Normocephalic and atraumatic. Nose: Nose normal. Eyes: General: Lids are normal. No scleral icterus. Right eye: No discharge. Left eye: No discharge. Conjunctiva/sclera: Conjunctivae normal. Pupils: Pupils are equal, round, and reactive to light. Neck: Trachea: Trachea normal. Cardiovascular: Rate and Rhythm: Normal rate and regular rhythm. Heart sounds: Normal heart sounds. Pulmonary: Effort: Pulmonary effort is normal. Breath sounds: Rhonchi (scattered bilat) present. No decreased breath sounds, wheezing or rales. Musculoskeletal: Cervical back: Normal range of motion and neck supple. Lymphadenopathy: Cervical: No cervical adenopathy. Right cervical: No superficial cervical adenopathy. Left cervical: No superficial cervical adenopathy. Skin: Findings: No rash. Neurological: Mental Status: She is alert and oriented to person, place, and time. ASSESSMENT/PLAN: 1. Viral bronchitis - ICD9: 466.0, ICD10: J20.8 (primary diagnosis) - Discussed supportive care - Limit exposure to smoke and other inhaled irritants - Discussed possible red flags and when to seek medical attention - Follow up in 3-5 days or sooner if no better or worse -If you experience chest pain/shortness of breath go to ER - PREDNISONE 20 MG TABLET - ALBUTEROL SULFATE HFA 90 MCG/ACTUATION AEROSOL INHALER 2. Rhonchi at both lung bases - ICD9: 786.7, ICD10: R09.89 - XR CHEST 2V FRONTAL/LAT IMPRESSION: No acute radiographic abnormality. Dictated by : MD Ariane DEL VALLE APRN.SERVICE PLANNER documented in this encounterTuscarawas Hospital03-24-2022 NotePap Smear Specimen AdequacyMarch 2021 12:30pmCommentSatisfactory for evaluation. Endocervical and/or squamous metaplasticcells (endocervical component)are present.[facility] INTER[facility]AC[facility] A#[id number] [facility] Work Phone: Comment on above:Satisfactory for evaluation. Endocervical and/or squamous metaplasticcells (endocervical component)are present.Evaluation noteNo assessment information availableWAultman Alliance Community Hospital Work Phone: Evaluation note* Diagnosis Onset Date Resolution Status Pharyngitis noneactive Breast mass, right acute [facility] Work Phone: Evaluation note* Diagnosis Viral bronchitis- Primary Acute bronchitis Rhonchi at both lung bases documented in this encounter [facility]* Diagnosis Family history of streptococcal pharyngitis- Primary Family history of infectious and parasitic diseases Recurrent streptococcal tonsillitis Streptococcal sore throat documented in this encounter [facility] HospitalEvalunemours foundation note* Diagnosis Onset Date Resolution Status Abnormal uterine bleeding (AUB) acute Encounter for routine gynecological examination noneactive [facility] Work Phone: Reason for referral (narrative)No reason for referral information availableWAultman Alliance Community Hospital Work Phone: Summary Purpose Family History No Family History Records Found Relationship Condition Age at Onset Recorded Date/T nahun mother Cardiac disease Unknown Arthritis Unknown Depression Unknown Osteoporosis Unknown Malignant neoplasm of skin Unknown father Hypertension Unknown Venous thrombosis Unknown brother Anxiety Unknown grandmother Malignant neoplasm of cervix Unknown Malignant melanoma Unknown Advance Directives No Advanced Directives Records Found Advance Directive Response Recorded Date/ Time Living Will No September 16 2:04pm Power of Calender Supervisor No September 16, 2020 2:04pm Advance Directive Response Recorded Date/ Time Living Will No September 16 1:04pm Power of Calender Supervisor No September 16, 2020 1:04pm Procedure Findings Note DICTATED BY:YOANA OROZCO MD SERVICE DATE:09/07/2020 PREOPERATIVE DIAGNOSES: 1. Unacceptable cosmetic appearance. 2. Cosmetic self-pay procedures. POSTOPERATIVE DIAGNOSES: 1. Unacceptable cosmetic appearance. 2. Cosmetic self-pay procedures. PROCEDURES: 1. Bilateral breast augmentation in a dual plane subpectoral fashion via inframammary fold with textured form stable [place] silicone implants bilaterally. 2. Bilateral breast fat grafting to upper poles of breast for approximately 80 mL per side. SURGEON: Yoana William MD, Plastic Surgery Staff. ANESTHESIA: General plus local anesthetic as field block consisting of 0.5% Naropin 30 mL, 1% lidocaine with epinephrine 30 mL, all was given plus 600 mL of tumescent fluid. ESTIMATED BLOOD LOSS: 25 mL plus 600 mL of lipoaspirate from the bilateral lateral thighs. DRAINS: A 15-Croatian drain was left indwelling on each side for each breast. SPECIMENS: None. COMPLICATIONS: None. IMPLANTS: [place] MemoryShape 345 mL implants were us (more content not included)... Note Patient: MARY NOWAK MRN: [id number] Age: 35 years Sex: Female : 1985 Associated Diagnoses: None Author: Cory Leon DO Subjective Subjective: Patient participated in the evaluation: Yes. Pain: not present. Denies nausea. Denies vomiting. Objective Objective: Vital Signs: Last Charted Vital Signs Temperature: 97.6 (09/07 09:30) Pulse: 76 (09/07 12:30) Respiration: 17 (09/07 11:45) BP: 117/76 (09/07 12:30) Pulse Ox: 99 (09/07 12:30) Oxygen Delivery: Room air (09/07 11:45) Pain Score: 3 (09/07 11:45) . Mental Status: alert and oriented. Postoperative hydration: adequate. Assessment Assessment: Post anesthetic condition: no anesthetic complications. Airway patent: yes. Plan Plan: Postanesthesia Plan: post anesthetic surveillance concluded. 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 ABNORMAL MAMMO Reason for Visit Abnormal uterine ble eding (AUB) Encounter for routine gynecological examination Chief Complaint Admit Date 30 DAY MONITOR January 29, 2025 7:0 0am palpitations January 29, 2025 8:3 8am 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) March 26, 2025 9:24am Reason for Visit Admit Date Breast mass, right March 26, 2025 9:24am Vaginal discharge March 26, 2025 9:24am Encounter for routine gynecological exam ination March 26, 2025 9:24am Additional Source Comments INFORMATION SOURCE (unrecogn ized section and content) DATE CREATED AUTHOR 09/08/2020 [facility] DATE CREATED AUTHOR AUTHOR'S ORGANIZ ATION 12/11/2020 [facility] DATE CREATED AUTHOR AUTHOR'S ORGANIZ ATION 12/11/2020 [facility] DATE CREATED AUTHOR AUTHOR'S ORGANIZ ATION 09/27/2023 [facility] DATE CREATED AUTHOR AUTHOR'S ORGANIZ ATION 04/14/2025 [facility] Goals (unrecognized section and content) Goals may be documented in a n alternate sectionGoals may be documented in an alternate sectionGoals may be documented in an alternate sectionGoals may be documented in an alternate sectionGoals may be documented in an alternate sectionGoals may be documented in an alternate sectionGoals may be documented in an alternate section Source Comments (unrecognize d section and content) In the event this informatio n is protected by the Federal Confidentiality of Alcohol and Drug Abuse Patient Records regulations: The Federal rules restrict any use of the information to criminally investigate or prosecute any alcohol or drug abuse patient.[facility] HospitalIn the event this information is protected by the Federal Confidentiality of Alcohol and Drug Abuse Patient Records regulations: The Federal rules restrict any use of the information to criminally investigate or prosecute any alcohol or drug abuse patient.[facility] HospitalIn the event this information is protected by the Federal Confidentiality of Alcohol and Drug Abuse Patient Records regulations: The Federal rules restrict any use of the information to criminally investigate or prosecute any alcohol or drug abuse patient.[facility] Reason for Visit (unrecogniz ed section and content) Reason Comments Cough Cough x 1 week Care Teams (unrecognized sec tion and content) Search Planner Relationship Specialty Start Date End Date Olena Clark PCP - General Family Medicine 08/01/12 Search Planner Relationship Specialty Start Date End Date Olena Clark PCP - General Family Medicine 08/01/12 Team Status: Active Member Role Status Dates Dr. Mandi Snider MD Family Provider Active Av Kim BLISTER PACK OPERATOR, BLISTER PACK OPERATOR-C Primary Care Provider Active Team Status: Inactive Member Role Status Dates Dr. Mandi Snider MD Primary Care Provider, Refer ring Provider Active Estefania Sesay BLISTER PACK OPERATOR, BLISTER PACK OPERATOR-C Attending Provider Active Team Status: Inactive Member Role Status Dates Av Kim BLISTER PACK OPERATOR, BLISTER PACK OPERATOR-C Primary Care Provider Active Estefania Sesay BLISTER PACK OPERATOR, BLISTER PACK OPERATOR-C Attending Provider, Referring Provider Active Team Status: Active Member Role Status Dates Dr. Mandi Snider MD Family Provider Active Av Kim VSC, BLISTER PACK OPERATOR-C Primary Care Provider Active Team Status: Inactive Member Role Status Dates Estefania Sesay BLISTER PACK OPERATOR, BLISTER PACK OPERATOR-C Attending Provider, Referring Provider Active Av ELDER, BLISTER PACK OPERATOR-C Primary Care Provider Active Team Status: Active Member Role Status Dates Av Kim BLISTER PACK OPERATOR, BLISTER PACK OPERATOR-C Primary Care Provide r, Attending Provider, Referring Provider Active Team Status: Inactive Member Role Status Dates Av Kim VSC, BLISTER PACK OPERATOR-C Primary Care Provider Active Estefania Sesay BLISTER PACK OPERATOR, BLISTER PACK OPERATOR-C Attending Provider, Referring Provider Active Search Planner Relationship Specialty Start Date End Date Olena Clark PCP - General Family Medicine 08/01/12 Team Status: Active Member Role Status Dates Av Kim VSC, BLISTER PACK OPERATOR-C Primary Care Provider Active Team Status: Inactive Member Role Status Dates Av Kim VSC, BLISTER PACK OPERATOR-C Primary Care Provider Active Start: January 19, 2025 End: January 19, 2025 Zebulun Beam VSC, BLISTER PACK OPERATOR-C Attending Provider Active Start: January 19, 2025 End: January 19, 2025 Team Status: Active Member Role Status Dates Av Kim VSC, BLISTER PACK OPERATOR-C Primary Care Provider Active Start: January 29, 2025 Dr. Lashonda Jimenez MD Attending Provider Active Start: January 29, 2025 Zebulun Beam VSC, BLISTER P[employer] OPERATOR-C Referring Provider Active Start: January 29, 2025 Team Status: Active Member Role Status Dates Av Aguilarder VSC, BLISTER PACK OPERATOR-C Primary Care Provider Active Start: January 29, 2025 Zebulun Beam VSC, BLISTER P[employer] OPERATOR-C Attending Provider Active Start: January 29, 2025 Zebulun Beam VSC, BLISTER PACK OPERATOR-C Referring Provider Active Start: January 29, 2025 Team Status: Inactive Member Role Status Dates Av Kim VSC, BLISTER PACK OPERATOR-C Primary Care Provider Active Start: March 26, 2025 End: March 26, 2025 Av Judy SNELLC, BLISTER PACK OPERATOR-C Referring Provider Active S tart: March 26, 2025 End: March 26, 2025 Lucille Li CNM Attending Provider Active S tart: March 26, 2025 End: March 26, 2025 Team Status: Inactive Member Role Status Dates Av Kim VSC, BLISTER PACK OPERATOR-C Primary Care Provider Active Start: March 26, 2025 End: March 26, 2025 Lucille Li CNM Attending Provider Active S tart: March 26, 2025 End: March 26, 2025 Lucille Li CNM Referring Provider Active S tart: March 26, 2025 End: March 26, 2025 FOR RECORDS PERTAINING TO PATIENTS WHO ARE OR HAVE BEEN ENROLLED IN A CHEMICAL DEPENDENCY/SUBSTANCEABUSE PROGRAM, SOME INFORMATION MAY BE OMITTED. This clinical summary was aggregated from multiple sources. Caution should be exercised in using it in the provision of clinical care. This summary normalizes information from multiple sources, and as a consequence, information in this document may materially change the coding, format and clinical context of patient data. In addition, data may be omitted in some cases. CLINICAL DECISIONS SHOULD BE BASED ON THE PRIMARY CLINICAL RECORDS. [facility] [employer] [facility]. provides no warranty or guarantee of the accuracy or completeness of information in this document.
[2025-11-18 11:57] LABS: Hematocrit 41.2 % (37-47); Hemoglobin 14.4 g/dL (12.0-15.0); Immature Granulocytes Count 0.020 X10^3/uL (0.0-0.0); Mean Corp Hgb Conc 35.0 g/dL (32-36); Mean Corpuscular Volume 86.4 fL (81-99); Mean Platelet Vol. 10.3 fl (6.2-12.0); NRBC Flagged by Analyzer 0 % (0-5); Platelet Count 232 K/mm3 (150-450); RBC Distribution Width CV 12.0 % (11.6-14.6); RBC Distribution Width SD 38.1 fl (35.1-43.9); Red Blood Count 4.77 M/mm3 (4.2-5.4); White Blood Count 5.9 K/mm3 (4.4-11.0)
[2025-11-18 12:29] LABS: AST(SGOT) 25 U/L (<=31); Alanine Aminotransfer ALT/SGPT 14 U/L (<=34); Albumin, Serum 4.5 g/dL (3.5-5.0); Alkaline Phosphatase 51 U/L (35-104); Anion Gap 11 (7-18); BUN 11 mg/dL (4-19); BUN/Creat Ratio 13.4 RATIO (10-20); Calcium,Total 9.1 mg/dL (7.6-11.0); Carbon Dioxide 23.1 mmol/L (20.0-29.0); Chloride 103 mmol/L (96-106); Globulin 3.1 g/dL (2.2-4.2); Glucose 88 mg/dL (70-99); Magnesium 2.3 mg/dL (1.5-2.2); Potassium 3.9 mmol/L (3.5-5.1); T4 Total, Thyroxin 6.5 ug/dL (4.8-13.9); Vitamin B12 261 pg/mL (180-914)
[2025-11-20 11:08] LABS: Vitamin D 1,25-Dihydroxy 20.2 pg/mL (24.8-81.5)
== END | disposition home or self-care (01) ==
LOC: MTLAB 10:18
PROVIDERS: PCP Nurse Practitioner Family; Referring Provider Nurse Practitioner Family; Visit Provider Nurse Practitioner Family
DX: R55 Syncope and collapse (principal); E56.9 Vitamin deficiency, unspecified
CPT/HCPCS: 36415; 80053; 82607; 82652; 83735; 84436; 84443; 85025